=== PATIENT | female | born 1935 | race Caucasian/White ===

== ENCOUNTER → 2016-06-01 | Outpatient (CLI) | payer OTHER, MEDICARE ==
[~2016-06-01] MED LIST: LISI-787 PO; NRV/5 PO; OXYC-292 PO; [UNRECOGNIZED DRUG - CODE] IM
== END | disposition home or self-care (01) ==
LOC: C.LABSPEC 14:41
PROVIDERS: ATTEND Family Medicine
DX: N39.0 Urinary tract infection, site not specified (principal)

== ENCOUNTER 2017-09-29 06:32 | Inpatient (IN) | payer OTHER, MEDICARE ==
[2017-09-17 10:13] VITALS: BMI 27.0
[2017-09-23 10:45] VITALS: BMI 27.0
--- NOTE | 2017-09-23 11:03 | PAT Medication Instructions ---
Service Date Sep 23, 2017. Current Home Medication List Amlodipine Besylate (Amlodipine Besylate), 5 MG PO HS Lisinopril/Hctz (Zestoretic 20MG/12.5MG), 1 TAB PO QAM Naproxen (Aleve), 220 MG PO PRN Medication Instructions For Your Scheduled Surgery -Check with your surgeon for instructions for: Naproxen (Aleve), 220 MG PO PRN - Hold the following medications the morning of surgery: Lisinopril/Hctz (Zestoretic 20MG/12.5MG), 1 TAB PO QAM - Take the following medications as scheduled the night before surgery--THEN NOTHING TO EAT OR DRINK AFTER MIDNIGHT: Amlodipine Besylate (Amlodipine Besylate), 5 MG PO HS If you have any questions please call us at [phone] or [phone] or [phone]
[2017-09-23 11:45] LABS: BASO % 0.1 %; BASO ABS # 0.01 K/uL (0-0.2); EOS % 1.5 %; EOS ABS # 0.13 K/uL (0-0.5); HEMATOCRIT 41.1 % (37-47); HEMOGLOBIN 14.2 g/dL (12.0-16.0); IG# 0.03 K/uL (0.00-0.02); LYMPH % 20.3 %; LYMPH ABS # 1.76 K/uL (1.2-3.4); MEAN CELL VOLUME 92.4 fL (80-100); MEAN CORPUSCULAR HEMOGLOBIN 31.9 pg (25-34); MEAN CORPUSCULAR HGB CONC 34.5 g/dl (32-36); MEAN PLATELET VOLUME 10.5 fL (7.4-10.4); MONO % 8.2 %; MONO ABS # 0.71 K/uL (0.11-0.59); NEUT % 69.6 %; NEUT ABS # 6.02 K/uL (1.4-6.5); PLATELET COUNT 244 K/uL (130-400); RED CELL DISTRIBUTION WIDTH CV 13.3 % (11.5-14.5); RED CELL DISTRIBUTION WIDTH SD 45.1 fL (36.4-46.3); WHITE BLOOD COUNT 8.66 K/uL (4.8-10.8)
--- NOTE | 2017-09-23 11:48 | DIAGNOSTIC IMAGING REPORT ---
CHEST 2 VIEWS ROUTINE HISTORY: Preop. COMPARISON: None. FINDINGS: No pleural effusions. No pneumothorax. Mild diffuse interstitial thickening which is likely chronic. No focal lung consolidations to suggest pneumonia. The heart is top normal in size. No acute rib fractures. IMPRESSION: Mild interstitial thickening which is likely chronic. Borderline cardiomegaly. Electronically signed by: Mann Orourke M.D. 09/23/2017 11:46 AM Dictated Date/Time: 09/23/2017 11:45 AM
[2017-09-23 12:07] LABS: PTT PATIENT 28.4 SECONDS (21.0-31.0)
[2017-09-23 13:23] LABS: CALCIUM 9.1 mg/dl (8.5-10.1); CREATININE 0.73 mg/dl (0.60-1.20); POTASSIUM 3.8 mmol/L (3.5-5.1)
--- NOTE | 2017-09-25 11:34 | HISTORY & PHYSICAL EXAMINATION ---
DATE OF ADMISSION: 09/29/2017 CHIEF COMPLAINT: Bilateral knee pain and discomfort, right side greater than left. HISTORY OF PRESENT ILLNESS: This is an 82-year-old female who presents for surgical treatment of her right knee. She has got a long history of bilateral knee pain and discomfort and we have been treating her over the past several years with injections and conservative care. The left knee continues to do okay with conservative treatment. The right knee has not responded at all lately. The last shot did not help her much at all. This pain is global in her knee, a little bit more on the medial side. The more she walks, the more it hurts. She has pain with every step. She has nighttime discomfort. She would like to have her right knee fixed. PAST MEDICAL HISTORY: Past medical history of hypertension. PAST SURGICAL HISTORY: Previous surgeries include fallopian tube removal 50 years ago. ALLERGIES: PENICILLIN WHICH CAUSES HIVES. No respiratory problems. CURRENT MEDICINES: Include: 1. Lisinopril/hydrochlorothiazide 20/12.5 mg once a day. 2. Amlodipine 5 mg a day for blood pressure. SOCIAL HISTORY: An 82-year-old female who lives by herself. Her daughter does live up the row from her. Medical doctor is Dr. Watkins. FAMILY HISTORY: Noncontributory. REVIEW OF SYSTEMS: Negative for diabetes, neurologic problems, vascular problems, bleeding disorders. No chest pain or shortness of breath. No history of DVT or PE. PHYSICAL EXAMINATION: GENERAL: Physical examination reveals a pleasant elderly female. She looks to be in pretty good health. HEENT: Benign. NECK: Supple. No lymphadenopathy. LUNGS: Clear to auscultation. HEART: Regular rate and rhythm. ABDOMEN: Soft, nontender, nondistended. EXTREMITIES: Grossly neurovascularly intact except as follows: Examination of the right knee reveals patient walks with slight bit of a limp. She does walk with a bit of a stiff knee on the right. She does have bony hypertrophy medially. Small knee effusion. Range of motion is 5-10 degrees, show full extension to about 110 degrees of flexion. There is no instability. No pain with hip motion. She is neurologically intact. X-RAYS: X-ray of the right knee reviewed. Shows advanced medial compartment arthritis. She has complete loss of her joint space. She has got osteophytes off the medial femoral condyle and medial tibial plateau. ASSESSMENT: An 82-year-old female with advanced bilateral knee degenerative joint disease, right side more symptomatic than the left. She has failed conservative treatment and would like to have her right knee replaced. PLAN: We will take her to the operating room and do a right total knee replacement. The risks and benefits of this procedure were explained to the patient including but not limited to DVT, PE, , infection, neurological injury, vascular injury, bleeding problem, pain, limited range of motion, stiffness, failure to relieve symptoms, incomplete relief of symptoms, need for further surgery in the future, fracture, leg length inequality, nerve palsy, etc. The patient understands and desires to proceed. Informed consent was obtained. We did talk about holding her lisinopril in the morning of surgery. She is hoping to go home with some home health, but she does live by herself and that may be difficult. We will see how she does in the hospital, but she may need a rehab or penitentiary facility stay.
[~2017-09-29] VITALS: Ht 160 cm; Wt 70.3 kg
[2017-09-29] VITALS (9 sets, daily range): BP systolic 114–150; BP diastolic 68–77; PULSE 60–80; TEMP 36.4–36.8; O2SAT 93–99; Ht 160 cm; Wt 70.3 kg
[~2017-09-29 06:32] MED LIST changes: +ACETAMINOPHEN 500 MG TAB PO SCH; +BUPIVACAINE LIPOSOME 266 MG, BUPIVACAINE/EPINEPHRINE INJ 50 ML, SODIUM CHLORIDE 0.9% PF... INFIL SCH; +FAMOTIDINE 20 MG TAB PO SCH; +GABAPENTIN 300 MG CAP PO SCH; +LACTATED RINGER'S 1000ML 1,000 ML IV SCH; +LACTATED RINGER'S 1000ML 500 ML IV SCH; +LACTATED RINGER'S 1000ML IV SCH; +METOCLOPRAMIDE HCL 10 MG TAB PO SCH; +NAPR1TAB9 PO; -OXYC-292 PO; +TRANEXAMIC ACID INJ 1,000 MG x 1 Bag Intra-Op IV SCH; -[UNRECOGNIZED DRUG - CODE] IM
[2017-09-29] MEDS ORDERED: ROPIVACAINE 0.5% 5 MG/ML 30 ML VIAL ONE (06:49)
[2017-09-29] MEDS ORDERED: BUPIVACAINE 0.5 % 5 MG/1 ML PF 10ML VIAL ONE (06:49)
--- NOTE | 2017-09-29 06:52 | History & Physical Bridge Note ---
H&P Re-Evaluation Bridge Note: I have examined the patient, reviewed the History & Physical and in the interval since the performance of the History & Physical I have noted the following changes of clinical significance: No changes noted
[2017-09-29] MEDS ORDERED: CEFAZOLIN SOD 2000MG/15 ML IV PUSH ONE (07:34)
[2017-09-29] MEDS ORDERED: FENTANYL CITRATE INJ 50 MCG/1 ML 2 ML VIAL ONE (08:30)
[2017-09-29] MEDS ORDERED: MIDAZOLAM HCL 1 MG/ML 2ML VIAL ONE (08:31)
[2017-09-29] MEDS ORDERED: SODIUM CHLORIDE 0.9% PF 50 ML VIAL ONE (09:21)
[2017-09-29] MEDS ORDERED: BACITRACIN 50000 UNIT VIAL ONE (09:21)
[2017-09-29] MEDS ORDERED: EpINEphrine INJ 1MG/ML AMP 1 MG/ML AMP ONE (09:21)
[2017-09-29] MEDS ORDERED: BUPIVACAINE 0.25% 30 ML VIAL ONE (09:21)
[2017-09-29] MEDS ORDERED: BUPIVACAINE LIPOSOME 1/3% 266 MG/20 ML VIAL ONE (09:21)
[2017-09-29] MEDS ORDERED: EpHEDrine SULFATE INJ 50 MG/ML AMP IV PRN (09:45)
[2017-09-29] MEDS ORDERED: ATROPINE SULFATE 0.1 MG/ML 5ML SYR IV PRN (09:45)
[2017-09-29] MEDS ORDERED: PROPOFOL IV EMULSION 10 MG/ML 20 ML VIAL ONE (09:52)
[2017-09-29] MEDS ORDERED: LIDOCAINE HCL 2% 2 ML VIAL (20MG/ML) ONE (09:52)
[2017-09-29] MEDS ORDERED: PHENYLEPHRINE 100MCG/ML 5ML SYR ONE (10:35)
[2017-09-29] MEDS ORDERED: EpHEDrine SULFATE 50MG/5ML SYR ONE (11:05)
--- NOTE | 2017-09-29 11:57 | OPERATIVE REPORT ---
DATE OF OPERATION: 09/29/2017 SURGEON: Jermaine Jamil MD ELECTRICAL DESIGN ENGINEER: CHILANGO Calvillo PREOPERATIVE DIAGNOSIS: Right knee degenerative joint disease. POSTOPERATIVE DIAGNOSIS: Right knee degenerative joint disease. PROCEDURE PERFORMED: Right cemented posterior stabilized total knee arthroplasty. COMPLICATIONS: None. ESTIMATED BLOOD LOSS: 150 mL. FLUID REPLACEMENT: 1500 mL crystalloid fluid replacement. TOURNIQUET TIME: 55 minutes at 350 mmHg. ANESTHESIA: Spinal with adductor canal block. DRAINS: None. SPECIMENS: Right knee sent for pathology. OPERATIVE INDICATIONS: The patient is an 82-year-old very active, independent female who has had a long history of bilateral knee pain and discomfort. I have been treating her over the years with injections. This became less successful over the past year and she is having trouble getting around. X-rays show advanced bilateral knee DJD. She elected to proceed with the right total knee arthroplasty. OPERATIVE FINDINGS: Operative findings revealed advanced right knee DJD. Extensive grade 4 changes of medial femoral condyle and medial tibial plateau with a fixed varus deformity to her knee. She had a moderate sized joint effusion. She had some focal grade 4 changes in the patellofemoral as well as lateral compartment. OPERATIVE IMPLANTS: Operative implants consisted of: 1. Biomet Vanguard size 60 right posterior stabilized femoral component. 2. A Biomet size 63 tibial tray. 3. A 10 mm posterior stabilized polyethylene insert. 4. A 31 x 8 all poly patella. OPERATIVE PROCEDURE: The patient was taken to the operating room, identified and placed on the operating table in supine position. All contact areas were appropriately padded. IV antibiotics were provided by anesthesia team. A spinal anesthetic and adductor canal block had been provided in the holding area. Saunders catheter was placed in sterile fashion. A right thigh tourniquet was then placed and the right lower extremity was then prepped and draped in usual sterile fashion. The right leg was elevated and exsanguinated with Esmarch and tourniquet was placed at 300 mmHg. An anterior approach to the right knee was then performed through a longitudinal incision centered over the patella. Sharp dissection was carried through the subcutaneous tissue down to the level of the extensor mechanism. A medial parapatellar arthrotomy incision was made. Some subperiosteal dissection was carried out medially. The fat pad was resected from beneath the patellar tendon. Lateral patellofemoral ligament was released. Patella was everted and knee was flexed. The osteophytes were taken off the distal femur. The ACL and PCL were then released from the distal femur and the tibia subluxated anteriorly. The external tibial alignment jig was then placed in the anterior face of the tibia and adjusted 14 mm medially. Proximal tibial cut was made to remove about 2 mm of bone from the most deficient aspect of the medial tibial plateau. She was oozing quite a bit, so we did increase the tourniquet pressure to 350 mmHg. Some osteophytes were taken off medial and posteromedially. The tibia sized to a size 63. Attention was then drawn to the femur. The distal femur was entered with a sharp drill bit. Intramedullary canal was suctioned. A right 5-degree valgus cutting guide was placed. Distal femoral cutting block was pinned in place. Distal femoral cut was made to take an additional 3 mm of bone off the distal femur. The femur was then sized to a size 60. We did downsize this slightly. The AP cutting block was pinned parallel to the epicondylar axis, which was 3 degrees of external rotation. The anterior cut, anterior chamfer, posterior cut, posterior chamfer cuts were made. Box cutting guide was placed and adjusted slight lateral and box cut was made. The knee was flexed. The remnants of the medial and lateral menisci were excised. The osteophytes were taken off the posterior aspect of the femur. A trial femoral component was placed. Tibial tray was pinned in maximum external rotation and drill and stem punch were used to create defect in proximal tibia for the tibial tray. The knee was then trialed and the 10 mm insert fit most appropriately. Attention was then drawn to the patella. The patella was cleaned of all soft tissues. Patella thickness measured 20 mm, cut down to 13. It was sized to a size 31 patella. Lug holes were drilled for a 31 patella. Lateral osteophyte was removed. Patella button was placed. Knee was taken through range of motion and the patella tracked nicely with no thumbs test. Attention was then drawn toward placement of permanent components. All trial components were removed. A bone plug was placed in the distal femur to limit blood loss. A double batch of Palacos G cement was mixed. A Biomet size 60 right posterior stabilized femoral component, size 63 tibial tray, 10 mm posterior stabilized polyethylene insert, and a 31 x 8 all poly patella were then cemented in place. Knee was brought out into full extension until cement hardened. A final cement check was then performed. The pericapsular tissues were injected with a total of 100 mL of combination of 20 mL of Exparel, 30 mL of normal saline, 50 mL of 0.25% Marcaine with epinephrine. The patient did receive 1 gram of tranexamic acid. The tourniquet was then let down for a final tourniquet time of 55 minutes. Interestingly, the bleeding decreased significantly once the tourniquet was down. Wound was irrigated. The extensor mechanism was then closed with a combination of #1 PDS suture and #1 Vicryl suture in [id number] fashion. Extensor mechanism was checked and found to be intact. The subcutaneous tissue was then closed with #2 Dexon suture in a buried interrupted fashion. Skin was closed with skin jakub. Leg was then cleaned and dried and a sterile dressing of Xeroform, 4 x 4's, sterile cast padding, and Benny bandage were applied. The patient then transferred to the recovery room in stable condition. The patient tolerated the procedure well with no complications. All needle and sponge counts were correct at the end of the operation. I attest to the content of the Intraoperative Record and any orders documented therein. Any exception s are noted below.
--- NOTE | 2017-09-29 12:07 | DIAGNOSTIC IMAGING REPORT ---
R KNEE 2 VIEWS ROUTINE CLINICAL HISTORY: Degenerative arthritis. Postoperative examination COMPARISON: Image radiographic study dated 09/23/2017 DISCUSSION: There are postsurgical changes of a total right knee arthroplasty. The spike of the tibial component is positioned slightly eccentrically towards the lateral cortex of the proximal tibial metaphysis. There are no acute fractures. There is no dislocation. There is air in the soft tissues consistent with recent surgery. IMPRESSION: Postsurgical changes of a total right knee arthroplasty Electronically signed by: Jan Carson M.D. 09/29/2017 12:05 PM Dictated Date/Time: 09/29/2017 12:03 PM
[2017-09-29] MEDS ORDERED: ZOLPIDEM TARTRATE 5 MG TAB PO PRN (14:00)
[2017-09-29] MEDS ORDERED: SILVER SULFADIAZINE 1% CR 50 GM JAR EXT PRN (14:00)
[2017-09-29] MEDS ORDERED: ALUMINUM/MAGNESIUM/SIMETH (MAALOX MAX) 30 ML UDC PO PRN (14:00)
[2017-09-29] MEDS ORDERED: MAGNESIUM HYDROXIDE SUSP 30 ML UDC PO PRN (14:00)
[2017-09-29] MEDS ORDERED: ONDANSETRON INJ 2 MG/ML 2 ML VIAL IV PRN (14:00)
[2017-09-29] MEDS ORDERED: METOCLOPRAMIDE HCL INJ 5 MG/ML 2 ML VIAL IV PRN (14:00)
[2017-09-29] MEDS ORDERED: TRAMADOL HCL 50 MG TAB PO PRN (14:00)
[2017-09-29] MEDS ORDERED: BISACODYL 10 MG SUPP PR PRN (14:00)
[2017-09-29] MEDS ORDERED: HYDROmorphone INJ 0.5 MG/0.5 ML SYR IV PRN (14:15)
[2017-09-29] MEDS: D5W AND 1/2NSS + 20MEQ KCL 1,000 ML IV SCH ×2 (14:28→23:55)
[2017-09-29] MEDS: ACETAMINOPHEN 500 MG TAB PO SCH ×2 (14:29→21:55)
[2017-09-29] MEDS: KETOROLAC TROMETHAMINE 15 MG/ML VIAL IV. SCH ×2 (16:56→21:55)
[2017-09-29] MEDS ORDERED: TRANEXAMIC ACID INJ 1,000 MG in SODIUM CHLORIDE 0.9% 100ML 100 ML IV SCH (17:00)
[2017-09-29] MEDS: FERROUS GLUCONATE 324 MG TAB PO SCH (18:01)
[2017-09-29] MEDS: CEFAZOLIN IV 1,000 MG in SYRINGE 0 ML IV SCH (18:04)
[2017-09-29] MEDS: SENNA 8.6 MG TAB PO SCH (20:41)
[2017-09-29] MEDS: ASPIRIN 81 MG ECTAB PO SCH (20:41)
[2017-09-29] MEDS: DOCUSATE SODIUM 100 MG CAP PO SCH (20:41)
[2017-09-30] VITALS (8 sets, daily range): BP systolic 120–138; BP diastolic 68–77; PULSE 60–78; TEMP 36.6–37.2; O2SAT 95–100
[2017-09-30] MEDS: CEFAZOLIN IV 1,000 MG in SYRINGE 0 ML IV SCH (01:57)
[2017-09-30] MEDS: KETOROLAC TROMETHAMINE 15 MG/ML VIAL IV. SCH ×4 (04:30→20:50)
[2017-09-30 05:37] LABS: HEMATOCRIT 29.9 % (37-47); HEMOGLOBIN 10.1 g/dL (12.0-16.0); MEAN CELL VOLUME 93.4 fL (80-100); MEAN CORPUSCULAR HEMOGLOBIN 31.6 pg (25-34); MEAN CORPUSCULAR HGB CONC 33.8 g/dl (32-36); MEAN PLATELET VOLUME 10.8 fL (7.4-10.4); PLATELET COUNT 187 K/uL (130-400); RED CELL DISTRIBUTION WIDTH CV 13.4 % (11.5-14.5); RED CELL DISTRIBUTION WIDTH SD 46.1 fL (36.4-46.3); WHITE BLOOD COUNT 9.96 K/uL (4.8-10.8)
[2017-09-30] MEDS: ACETAMINOPHEN 500 MG TAB PO SCH ×3 (06:04→20:50)
[2017-09-30 06:12] LABS: CALCIUM 7.9 mg/dl (8.5-10.1); CREATININE 0.75 mg/dl (0.60-1.20)
[2017-09-30] MEDS: GABAPENTIN 300 MG CAP PO SCH (08:59)
[2017-09-30] MEDS: FAMOTIDINE 20 MG TAB PO SCH (08:59)
[2017-09-30] MEDS: MULTIVITAMIN TAB PO SCH (08:59)
[2017-09-30] MEDS: FERROUS GLUCONATE 324 MG TAB PO SCH ×3 (08:59→17:47)
[2017-09-30] MEDS: DOCUSATE SODIUM 100 MG CAP PO SCH ×2 (08:59→20:49)
[2017-09-30] MEDS: LISINOPRIL/HCTZ 20/12.5MG TAB PO SCH (09:00)
[2017-09-30] MEDS: PANTOprazole SOD 40 MG TAB PO SCH (09:00)
[2017-09-30] MEDS: ASPIRIN 81 MG ECTAB PO SCH ×2 (09:00→20:49)
[2017-09-30] MEDS ORDERED: AMLODIPINE BESYLATE 5 MG TAB PO SCH ×2 (09:00→21:00)
--- NOTE | 2017-09-30 09:30 | Anesthesiology Progress Note ---
Anesthesia Post Op Note Date & Time Sep 30, 2017 at 09:29 Vital Signs Pain Intensity: 0.0 Vital Signs Past 12 Hours Date Time Temp Pulse Resp B/P (MAP) Pulse Ox O2 Delivery O2 Flow Rate FiO2 09/30/17 07:39 37.0 70 17 120/71 (87) 96 Room Air 09/30/17 07:25 Room Air 09/30/17 03:10 37.2 66 16 137/68 (91) 95 Room Air 09/29/17 23:55 Room Air 09/29/17 23:20 36.4 63 14 114/68 (83) 98 Room Air Notes Mental Status: alert / awake / arousable, participated in evaluation Pt Amnestic to Procedure: Yes Nausea / Vomiting: adequately controlled Pain: adequately controlled Airway Patency, RR, SpO2: stable & adequate BP & HR: stable & adequate Hydration State: stable & adequate Anesthetic Complications: no major complications apparent
[2017-09-30] MEDS: D5W AND 1/2NSS + 20MEQ KCL 1,000 ML IV SCH (09:58)
[2017-09-30] MEDS ORDERED: NURSING VERBAL MED ORDER ONE (10:00)
--- NOTE | 2017-09-30 10:44 | PROGRESS NOTE ---
DATE: 09/30/2017 SUBJECTIVE: An 82-year-old female postop day 1 from a right knee replacement. She is doing well. Really not much pain. No chest pain or shortness of breath. Not feeling dizzy or lightheaded. OBJECTIVE: VITAL SIGNS: Temperature 37.0. Vital signs stable. GENERAL: Reveals a healthy pleasant elderly female. She is sitting in her bedside chair and looks quite comfortable. LUNGS: Clear to auscultation. HEART: Regular rate and rhythm. ABDOMEN: Soft, nontender, nondistended. EXTREMITIES: Grossly neurovascularly intact except as follows. Examination of the right leg reveals the dressing to be clean, dry, and intact. Her leg is well aligned. She can dorsiflex and plantarflex her foot appropriately. She is neurologically intact. LABORATORY DATA: Hemoglobin 10.1, hematocrit 29.9. Electrolytes are stable. ASSESSMENT: An 82-year-old female postop day 1 from a right knee replacement, doing pretty well. Pain is controlled. She is neurologically intact. PLAN: 1. DVT prophylaxis including thigh-high TEDs, SCDs, and aspirin twice a day. 2. PT/OT. Weight bear as tolerated. Right total knee protocol. 3. Pain control, doing well with current pain regimen. 4. Disposition: She is hoping to be discharged to home with some home health once adequately recovered. We will see how she does in therapy today.
[2017-09-30] MEDS: SENNA 8.6 MG TAB PO SCH (20:49)
[2017-09-30] MEDS ORDERED: ASPI-461 PO (21:27)
[2017-09-30] MEDS ORDERED: ULT50X PO (21:27)
[2017-09-30] MEDS ORDERED: FRRG PO (21:27)
[2017-09-30] MEDS ORDERED: ACET-24 PO (21:27)
--- NOTE | 2017-09-30 21:30 | Discharge Instructions ---
Discharge Instructions Date of Service Sep 30, 2017. Admission Reason for Admission: Right Knee Degenerative Joint Disease, Knee Pain Discharge Discharge Diagnosis / Problem: Right Knee Replacement Discharge Goals Goal(s): Decrease discomfort, Improve function, Increase independence, Improve disease control, Therapeutic intervention Activity Recommendations Activity Limitations: per Instructions/Follow-up section Weightbearing Status: Right weightbearing . Instructions / Follow-Up Instructions / Follow-Up ACTIVITY RECOMMENDATIONS: Physical Therapy: * You will go to physical therapy three times each week for four to six weeks after your surgery in order to regain your knee range of motion and to retrain your knee to work properly. * It is just as important to make sure you are getting your knee perfectly straight as it is to regain your knee bend. * Taking a pain pill an hour before therapy can help you have a more productive and comfortable therapy session. Home Exercise: * You were shown a series of exercises (heel props, heel slides, etc.) in the hospital. Do these exercises three to four times each day including the exercises you were shown in physical therapy. Walking: * Get up and walk several times each day. For the first four weeks, try not to stand or walk for more than one hour at a time. If you do stand or walk for more than one hour, you will not hurt anything, but your knee and leg will likely swell. * As you feel comfortable, you may change from the walker or crutches to a cane and then to independent walking. MEDICATIONS: New Medicine: * You will likely be taking one or more of these medications: 1. Tramadol - A quick and shorter-acting pain medication. Take one to two tablets every four to six hours to lessen your pain. 2. Iron Sulfate - Take two times each day for the month after surgery to help you replace the blood lost during surgery. 3. Aspirin - Thins your blood to lessen the chance of forming a blood clot. * The most common side effects of pain medicine and iron are nausea and constipation. If nausea or constipation is too much of a problem or if you have any questions about your new medicines or doses, call [facility] at . We will try to help you manage these issues. VERY IMPORTANT TO READ AND REVIEW" Pain: * The immediate post-operative period after knee replacement surgery is often quite painful. * You are given a prescription for pain medicine. You should take it, as directed, when you need it, especially before physical therapy and before going to bed. Pain that interferes with sleep is very common and can last several months. * You will likely need pain medicine for the first four to six weeks. It will not stop all of the pain. The pain will lessen and as you feel better, you may change to milder pain medicine such as Tylenol. * The most common side effects of pain medicine are nausea and constipation, so don't take more than you need. SPECIAL CARE INSTRUCTIONS: TEDs/Elastic Stockings: * The white elastic stockings help limit swelling and prevent blood clots from forming in your legs. The more you wear them, the more they work. * Wear them for six weeks after knee replacement surgery and four weeks after partial knee replacement. Prevention of Infection: * Take antibiotics one hour before any dental cleaning, dental work, urological procedure, gastrointestinal procedure or any invasive surgery in order to prevent your new joint from getting infected. * You may get the antibiotics from the doctor performing the procedure or you may call our office at before and we will call in a prescription to the pharmacy of your choice. Things to Watch For: * Drainage from the incision site that occurs more than one week after your surgery. * Severely increased knee/leg pain or swelling. * Increased redness at the incision site. * Fever above 102 degrees Fahrenheit. * Unusual chest pain or shortness of breath. * Unusual pain or burning with urination. Call [facility] at with any of the above problems or if you have any questions about your medicines or recovery. FOLLOW UP VISIT: Make an appointment to see your doctor for approximately two weeks after surgery for a progress check and staple removal by calling the office at . Current Hospital Diet Patient's current hospital diet: Regular Diet Discharge Diet Recommended Diet: Regular Diet Pending Studies Studies pending at discharge: no Medical Emergencies . Who to Call and When: Medical Emergencies: If at any time you feel your situation is an emergency, please call [phone] immediately. . Non-Emergent Contact Non-Emergency issues call your: Surgeon . "Provider Documentation" section prepared by Jermaine Jamil. .
[2017-10-01] MEDS: KETOROLAC TROMETHAMINE 15 MG/ML VIAL IV. SCH ×2 (03:57→09:49)
[2017-10-01] MEDS: ACETAMINOPHEN 500 MG TAB PO SCH ×2 (05:20→13:46)
[2017-10-01 05:51] LABS: HEMOGLOBIN 9.1 g/dL (12.0-16.0); MEAN CELL VOLUME 93.1 fL (80-100); MEAN CORPUSCULAR HEMOGLOBIN 31.4 pg (25-34); MEAN CORPUSCULAR HGB CONC 33.7 g/dl (32-36); MEAN PLATELET VOLUME 10.7 fL (7.4-10.4); PLATELET COUNT 179 K/uL (130-400); RED CELL DISTRIBUTION WIDTH CV 13.3 % (11.5-14.5); RED CELL DISTRIBUTION WIDTH SD 45.5 fL (36.4-46.3); WHITE BLOOD COUNT 10.21 K/uL (4.8-10.8)
[2017-10-01 06:20] LABS: CALCIUM 7.8 mg/dl (8.5-10.1); CREATININE 0.86 mg/dl (0.60-1.20); POTASSIUM 3.8 mmol/L (3.5-5.1)
[2017-10-01 06:40] VITALS: BP 111/68; PULSE 65; TEMP 37; O2SAT 97
--- NOTE | 2017-10-01 07:54 | PROGRESS NOTE ---
DATE: 10/01/2017 SUBJECTIVE: This is an 82-year-old female postop day 2 from a right knee replacement. She is doing well. Pain is controlled. No chest pain or shortness of breath. Not feeling dizzy or lightheaded. OBJECTIVE: VITAL SIGNS: Temperature 37.0. Vital signs stable. GENERAL: Physical examination reveals a pleasant elderly female. She is sitting up in her bedside chair and looks comfortable. EXTREMITIES: Examination of the right leg reveals the dressing to be clean, dry and intact. Calf is soft and supple. She can dorsiflex and plantarflex her foot appropriately. She is neurologically intact. LABORATORY DATA: Hemoglobin 9.1. Hematocrit 27.0. Electrolytes are stable. ASSESSMENT: This is an 82-year-old female postop day 2 from right knee replacement, doing well. Pain is controlled. She is slightly anemic, but without symptoms. PLAN: 1. DVT prophylaxis including thigh-high TEDs, SCDs, and aspirin twice a day. 2. PT/OT. Weight bear as tolerated. Right total knee protocol. 3. Pain control, doing pretty well with current pain regimen. 4. Disposition: She is planning to be discharged to home with some home health later today.
[2017-10-01 08:28] VITALS: BP 111/68; PULSE 65; TEMP 37; O2SAT 97
[2017-10-01] MEDS: LISINOPRIL/HCTZ 20/12.5MG TAB PO SCH (09:13)
[2017-10-01] MEDS: ASPIRIN 81 MG ECTAB PO SCH (09:13)
[2017-10-01] MEDS: FAMOTIDINE 20 MG TAB PO SCH (09:15)
[2017-10-01] MEDS: FERROUS GLUCONATE 324 MG TAB PO SCH ×2 (09:49→12:40)
[2017-10-01] MEDS: DOCUSATE SODIUM 100 MG CAP PO SCH (09:49)
[2017-10-01] MEDS: GABAPENTIN 300 MG CAP PO SCH (09:49)
[2017-10-01] MEDS: MULTIVITAMIN TAB PO SCH (09:52)
[2017-10-01] MEDS: PANTOprazole SOD 40 MG TAB PO SCH (09:53)
[2017-10-01 15:32] VITALS: BP 136/69; PULSE 62; TEMP 36.7; O2SAT 97
--- NOTE | 2017-10-12 15:45 | DISCHARGE SUMMARY ---
ADMITTING PHYSICIAN AND SURGEON: Dr. Jamil. ADMITTING DIAGNOSIS: Right knee degenerative joint disease. SURGERY PERFORMED: Right total knee arthroplasty. SECONDARY DIAGNOSIS: Hypertension. CONSULTS: None obtained. HISTORY AND PHYSICAL EXAMINATION: Well documented in the patient's chart. HOSPITAL COURSE: The patient was admitted on 09/29/2017, underwent total knee arthroplasty, tolerated the procedure well and there were no complications. She was transferred to the PACU postoperatively and later to the orthopedic floor for further care. She was given Ancef for antibiotic prophylaxis, BRITANY stockings, SCDs and aspirin for DVT prophylaxis. Hemoglobin, hematocrit and vital signs were monitored during hospital stay and remained stable. She developed some postoperative anemia, did not require any blood transfusions. There were no complications. By postoperative day 2, she was tolerating a regular diet, pain was controlled with oral pain medicine. She was participating in physical therapy. Postop day 2, she was discharged home, set up with home health services. She was given printed discharge instructions including new prescriptions for extra-strength Tylenol, aspirin, iron supplement and tramadol. Continue her home medicines. Continue physical therapy, weightbearing as tolerated, BRITANY stockings, follow up in approximately 2 weeks postoperatively or sooner if any problems or concerns.
== END 2017-10-01 17:30 | disposition home health service (06) | DRG 470 ==
LOC: C.ACU 06:32 → C.3E 07:10 → ENRESERV 12:19
PROVIDERS: ADMIT Orthopaedic Surgery Sports Medicine; ATTEND Orthopaedic Surgery Sports Medicine
PROC: 0SRC0J9 Replacement of Right Knee Joint with Synthetic Substitute, Cemented, Open Approach (ICD-10-PCS; principal; 2017-09-29 09:15)
DX: M17.11 Unilateral primary osteoarthritis, right knee (principal); I10 Essential (primary) hypertension; Z88.0 Allergy status to penicillin

== ENCOUNTER 2021-11-22 10:39 | Observation (INO) ==
--- NOTE | 2021-11-22 11:05 | Emergency Department Note ---
Impression & Plan Syncope, Elevated troponin ED Provider Note NAME: KORI WILD AGE: 86 SEX: F : 1935 ARRIVES VIA: Walk-In INFORMANT: Patient, ED PROVIDER(S): Glenn Byers MD Chief Complaint: Syncope HPI: Patient presents from [facility] after syncopal event. The patient's daughters at bedside states that she was not with her at the time but was reported that the patient had a brief syncopal episode. Patient states that she had gotten all her things at the store then just felt off and sat down and then reportedly a bystander had helped lay her to the ground. No reports of tongue biting incontinence or shaking. The patient denies any headache neck pain chest pain shortness of breath nausea or vomiting. Patient has had 2 episodes of loose stools since. Patient did not take any blood the medications. The patient does take her medications as prescribed. Patient believes that her sleep and appetite been okay that she is drinking normally. Patient denies any feelings of palpitation. The patient did have some mild dizziness prior to this event. The patient is not a diabetic. The patient ate this morning. Patient does feel better compared to before and like to go home. Patient denies any strokelike symptoms including numbness tingling focal weakness or slurred speech or facial droop. ROS: See HPI for pertinent positives and negatives. A total of 10 systems were reviewed and otherwise negative. Past medical history: See below Surgical history: See below Social history: See below Physical Exam: GENERAL: NAD, wearing a mask, non-toxic. Hard of hearing wearing hearing aids. EYE EXAM: Normal conjunctiva. PERRL, no anisocoria and EOM's grossly intact w/o pain. NECK: Supple, no nuchal rigidity, no adenopathy, non-tender. No signs of meningismus. FROM of the neck with good chin to chest and neck extension. No stridor. LUNGS: Clear to auscultation. Normal chest wall mechanics. HEART: NSR, no MRG. ABDOMEN: Abdomen soft, non-tender, normo-active bowel sounds, no masses, no rebound or guarding. BACK: No CVA TTP. SKIN: No rashes and no bruising. UPPER EXTREMITIES: Upper extremities are grossly normal. LOWER EXTREMITIES: Grossly normal, no edema. NEURO EXAM: A&O x3, cranial nerves II-XII grossly intact, normal speech, moves all 4 extremities. Good [id number], no sensory deficits, no drift. Differential diagnoses: Vasovagal event, dehydration, infection, hypoglycemia, electrolyte abnormalities, cardiac sources, intracerebral event, pulmonary embolism, seizure, toxicologic, neurologic, as well as other pathologies. Course: Patient was seen and evaluated the bedside. Full history physical exam was performed. EKG interpreted by me Normal sinus rhythm, rate of 75, normal HI and QRS, normal axis, slight depressions in the lateral leads. This is a new change from comparison September 23, 2017. Imaging Studies: See Below Cardiac monitoring: An order was placed for continuous cardiac monitoring. The monitor shows a rate of 88 with sinus rhythm. MDM: Patient presented due to concern for syncope. Blood work was obtained the patient was ordered IV fluids and did have an EKG completed along with a chest x-ray. Patient's blood work showed normal white count H&H and platelet count. The patient's kidney function with mild prerenal azotemia and hyponatremia 135. The patient did have a positive troponin at 17.3. Nonspecific slight ST depressions in the lateral leads. COVID-negative. The patient did have a chest x-ray which showed diffuse interstitial thickening. Given the patient's syncope positive troponin and subtle EKG changes do believe the patient would benefit from telemetry and admission. I did speak the on-call hospitalist the patient was admitted by Dr. Mares. The patient has no chest pains or shortness of breath at this time. Past Med/Surg History Medical History Asthma HTN (hypertension) Lumbar compression fracture Lumbar spinal stenosis Neurogenic claudication Piriformis syndrome Scoliosis Surgical History History of appendectomy History of knee replacement, total right knee Social History Smoking Status: Never smoker Hx Alcohol Use: No Hx Substance Use: No Preferred Language: Northern Irish Communication Ability: Effective Visual Impairment: Limited Hearing Ability: Hard of Hearing Cable Braider Required: No Beliefs That Will Affect Care: None marital status: / Current Living Situation: Alone current occupational status: retired Feels Safe at Home: Yes Safety Concerns: Feels Safe At This Time Allergies Allergies Allergy/AdvReac Type Severity Reaction Status Date / Time amoxicillin Allergy Unknown HIVES Verified 04/12/20 14:58 Home Meds Home Medications Medication Instructions Recorded Confirmed amlodipine 5 mg tablet 5 mg PO HS 05/15/19 04/01/20 lisinopril 20 1 tab PO DAILY 05/15/19 04/01/20 mg-hydrochlorothiazide 12.5 mg tablet Results & Data (ED) Vital Signs Vital Signs - 24 hr 11/22/21 10:52 11/22/21 11:33 11/22/21 11:38 Temperature 36.9 C Temperature Source Temporal Artery Scan Pulse Rate 92 H 73 Pulse Rate [Finger] 73 Pulse Rhythm Regular Pulse Rhythm [Finger] Regular Pulse Strength [Finger] Normal Respiratory Rate 16 17 17 Respiratory Effort / Characteristics Non-Labored Spontaneous Respiratory Depth Normal Respiratory Pattern Regular Blood Pressure 137/81 Blood Pressure [Right Arm] 120/81 Blood Pressure Mean 99 Blood Pressure Mean [Right Arm] 94 Blood Pressure Position Sitting Blood Pressure Position [Right Arm] Sitting Pulse Oximetry 96 100 93 Oxygen Delivery Method Room Air Room Air Room Air Sepsis Recent Fever Within 48 Hours No Sepsis New/Unexplained Change in Mental Status No Sepsis Action Taken by Nursing No Action Required 11/22/21 13:01 Temperature Temperature Source Pulse Rate Pulse Rate [Finger] 79 Pulse Rhythm Pulse Rhythm [Finger] Pulse Strength [Finger] Respiratory Rate 17 Respiratory Effort / Characteristics Non-Labored Spontaneous Respiratory Depth Normal Respiratory Pattern Regular Blood Pressure Blood Pressure [Right Arm] 122/81 Blood Pressure Mean Blood Pressure Mean [Right Arm] 94 Blood Pressure Position Blood Pressure Position [Right Arm] Sitting Pulse Oximetry 97 Oxygen Delivery Method Room Air Sepsis Recent Fever Within 48 Hours Sepsis New/Unexplained Change in Mental Status Sepsis Action Taken by Detention Medications Current Medication List: was personally reviewed by me Laboratory Data Attestation: I reviewed the patient's lab results. Result diagrams: 11/22/21 11:30 11/22/21 11:30 Lab Results 11/22/21 11/22/21 11/22/21 Range/Units 11:30 11:30 11:30 WBC 9.70 (4.8-10.8) K/ul RBC 4.32 (3.93-5.22) M/uL Hgb 13.9 (12.0-16.0) g/dl Hct 40.9 (34.1-44.9) % MCV 94.7 (80.0-100.0) fL MCH 32.2 (25.0-34.0) pg MCHC 34.0 (32.0-36.0) g/dL RDW Std Deviation 45.0 (36.4-46.3) fL RDW Coeff of Refugio 12.9 (11.5-14.5) % Plt Count 247 (130-400) K/uL MPV 10.1 (9.4-12.3) fL Immature Gran % (Auto) 0.5 % Neut % (Auto) 79.5 % Lymph % (Auto) 13.1 % Becker % (Auto) 4.7 % Eos % (Auto) 1.8 % Baso % (Auto) 0.4 % Neut # (Auto) 7.71 H (1.4-6.5) K/uL Lymph # (Auto) 1.27 (1.2-3.4) K/uL Becker # (Auto) 0.46 (0.24-0.82) K/uL Eos # (Auto) 0.17 (0-0.50) K/uL Baso # (Auto) 0.04 (0-0.2) K/uL Immature Gran # (Auto) 0.05 H (0.00-0.02) K/uL Sodium 135 L (136-145) mmol/L Potassium 3.9 (3.5-5.1) mmol/L Chloride 101 (98-107) mmol/L Carbon Dioxide 25 (21-32) mmol/L Anion Gap 9 (3-11) BUN 21 (6-23) mg/dl Creatinine 0.98 (0.6-1.2) mg/dl Est Cr Clr Drug Dosing 36.5 ml/min Est GFR ( Amer) 59.7 ml/min Est GFR (Non-Af Amer) 51.5 ml/min BUN/Creatinine Ratio 21.4 H (10-20) Glucose 118 H (70-99(Fasting)) mg/dl Calcium 9.2 (8.5-10.1) mg/dl Magnesium 2.0 (1.7-2.4) mg/dl Total Bilirubin 0.7 (0.2-1.0) mg/dl AST 16 (13-39) U/L ALT 12 (7-52) U/L Alkaline Phosphatase 61 (34-104) U/L Troponin I High Sens 17.3 H (0-14) pg/ml Total Protein 6.8 (6.0-8.3) gm/dl Albumin 4.1 (3.4-5.0) gm/dl Globulin 2.7 (2.5-4.0) gm/dl Albumin/Globulin Ratio 1.5 (0.9-2) TSH 1.168 (0.300-4.500) uIu/ml SARS-CoV-2, RNA, NAAT (NEGATIVE) 11/22/21 Range/Units 12:58 WBC (4.8-10.8) K/ul RBC (3.93-5.22) M/uL Hgb (12.0-16.0) g/dl Hct (34.1-44.9) % MCV (80.0-100.0) fL MCH (25.0-34.0) pg MCHC (32.0-36.0) g/dL RDW Std Deviation (36.4-46.3) fL RDW Coeff of Refugio (11.5-14.5) % Plt Count (130-400) K/uL MPV (9.4-12.3) fL Immature Gran % (Auto) % Neut % (Auto) % Lymph % (Auto) % Becker % (Auto) % Eos % (Auto) % Baso % (Auto) % Neut # (Auto) (1.4-6.5) K/uL Lymph # (Auto) (1.2-3.4) K/uL Becker # (Auto) (0.24-0.82) K/uL Eos # (Auto) (0-0.50) K/uL Baso # (Auto) (0-0.2) K/uL Immature Gran # (Auto) (0.00-0.02) K/uL Sodium (136-145) mmol/L Potassium (3.5-5.1) mmol/L Chloride (98-107) mmol/L Carbon Dioxide (21-32) mmol/L Anion Gap (3-11) BUN (6-23) mg/dl Creatinine (0.6-1.2) mg/dl Est Cr Clr Drug Dosing ml/min Est GFR ( Amer) ml/min Est GFR (Non-Af Amer) ml/min BUN/Creatinine Ratio (10-20) Glucose (70-99(Fasting)) mg/dl Calcium (8.5-10.1) mg/dl Magnesium (1.7-2.4) mg/dl Total Bilirubin (0.2-1.0) mg/dl AST (13-39) U/L ALT (7-52) U/L Alkaline Phosphatase (34-104) U/L Troponin I High Sens (0-14) pg/ml Total Protein (6.0-8.3) gm/dl Albumin (3.4-5.0) gm/dl Globulin (2.5-4.0) gm/dl Albumin/Globulin Ratio (0.9-2) TSH (0.300-4.500) uIu/ml SARS-CoV-2, RNA, NAAT NEGATIVE (NEGATIVE) Administered Medications Discontinued Medications Sodium Chloride (Nss) 500 mls @ 999 mls/hr IV .Q31M MARGARET Stop: 11/22/21 11:45 Last Infusion: 11/22/21 12:16 Dose: 0 mls/hr Documented By: Admin: 11/22/21 11:39 Dose: 999 mls/hr Documented By: ON LICENSE OF [facility] Imaging Data Radiologist's Impression: Chest X-Ray 11/22/21 11:19 XR chest 1V portable HISTORY: syncope COMPARISON: Chest 09/23/2017. FINDINGS: No pneumothorax. The cardiac silhouette is mildly enlarged. There is diffuse interstitial thickening most pronounced within the lower lung zones. There are hazy bibasilar densities. No evidence for pulmonary edema. No acute rib fractures. No pleural effusions. IMPRESSION: 1. Diffuse interstitial thickening most pronounced within the lower lung zones. This has progressed in the interval and could represent an interstitial pneumonitis on the background of chronic interstitial change. 2. Mild cardiomegaly. ACT 112: Negative or not required by law. Electronically signed by: Mann Orourke M.D. 11/22/2021 11:48 AM Discharge Plan Visit Data Chief Complaint: Syncope Stated Complaint: SYNCOPE, PASSED OUT ED Provider: Glenn Byers Discharge Problem: Syncope, Elevated troponin Patient Disposition: Admitted As Inpatient Discharge Instructions Interventions: ED Discharge Assessment Last Done: 11/22/21 16:39
[2021-11-22] MEDS ORDERED: SODIUM CHLORIDE 0.9% 500 ML IV SCH (11:15)
[2021-11-22 11:40] LABS: Basophils # (auto) 0.04 K/uL (0-0.2); Basophils % (auto) 0.4 %; Eosinophils # (auto) 0.17 K/uL (0-0.50); Eosinophils % (auto) 1.8 %; Hematocrit (blood only) 40.9 % (34.1-44.9); Hemoglobin 13.9 g/dl (12.0-16.0); Immature Granulocytes # (auto) 0.05 K/uL (0.00-0.02); Immature Granulocytes % (auto) 0.5 %; Lymphocytes # (auto) 1.27 K/uL (1.2-3.4); Lymphocytes % (auto) 13.1 %; Mean Corpuscular Hemoglobin 32.2 pg (25.0-34.0); Mean Corpuscular Volume 94.7 fL (80.0-100.0); Mean Platelet Volume 10.1 fL (9.4-12.3); Monocytes # (auto) 0.46 K/uL (0.24-0.82); Monocytes % (auto) 4.7 %; Neutrophils # (auto) 7.71 K/uL (1.4-6.5); Neutrophils % (auto) 79.5 %; Platelet Count 247 K/uL (130-400); RDW Coefficient of Variation 12.9 % (11.5-14.5); Red Blood Count 4.32 M/uL (3.93-5.22)
--- NOTE | 2021-11-22 11:51 | XRay Report ---
XR chest 1V portable HISTORY: syncope COMPARISON: Chest 09/23/2017. FINDINGS: No pneumothorax. The cardiac silhouette is mildly enlarged. There is diffuse interstitial t hickening most pronounced within the lower lung zones. There are hazy bibasilar densities. No evidenc e for pulmonary edema. No acute rib fractures. No pleural effusions. IMPRESSION: 1. Diffuse interstitial thickening most pronounced within the lower lung zones. This has progressed i n the interval and could represent an interstitial pneumonitis on the background of chronic interstit ial change. 2. Mild cardiomegaly. ACT 112: Negative or not required by law. Electronically signed by: Mann Orourke M.D. 11/22/2021 11:48 AM
[2021-11-22 12:09] LABS: Albumin Globulin Ratio 1.5 (0.9-2); Albumin Level 4.1 gm/dl (3.4-5.0); BUN Creatinine Ratio 21.4 (10-20); Bilirubin,Total 0.7 mg/dl (0.2-1.0); Calcium 9.2 mg/dl (8.5-10.1); Creatinine Clr Calc Pharmacy 36.5 ml/min; Est GFR (African American) 59.7 ml/min; Est GFR (Non-African American) 51.5 ml/min; Globulin 2.7 gm/dl (2.5-4.0); Potassium 3.9 mmol/L (3.5-5.1); Total Protein 6.8 gm/dl (6.0-8.3)
[2021-11-22 12:14] LABS: Troponin I High Sensitivity 17.3 pg/ml (0-14)
--- NOTE | 2021-11-22 13:32 | History & Physical Report ---
Date of Service November 22, 2021 Assessment & Plan (1) Syncope: Plan: Patient with syncopal event while shopping preceded by feeling hot and diaphoresis, unsure of time. Awakened without confusion or focal neurological deficits - DDX: possible conduction abn from underlying lung disease vs. atrial/ventricular dysrrhythmia vs. 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 Patient presents today following reported syncopal episode at [facility] while grocery shopping. Patient was accompanied with her daughter. They were shopping together, but were doing so separately. She states that she was just walking up the aisle and started to feel hot and sweaty, so she sat on the edge of the shelf. She then remembers being helped up and placed in wheelchair. Her daughter was summoned to the front of the store where her she states her mom was in a wheelchair and just appeared sweaty and maybe a little pale. The patient denies any feeling of dizziness prior to episode, chest pain, shortness of breath, or flashing lights in front of her eyes. She reports not being confused afterwards as well as no loss of bowel or bladder, however she has had diarrhea since the event x3 that is brown in nature without blood or mucous. Up until today she reports that she has been feeling well. She ate breakfast this morning and did take all of her medications. No repeat of symptomatology while up and going to bathroom. Patient had ECG and CXR as well as routine labs performed in the EMD to include HScTNI. Labs were remarkable for NA of 135, normal electrolytes and renal function, no elevated WBC and HScTNI mildly elevated at 17. Patient will be observed on telemetry overnight and obtain ECHO as well as diagnostic CT scan of her chest performed. Patient has history of interstitial thickening noted previous with some worsening noted on today's exam. 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 She reports that she used to be on Symbicort but did not like taking it. This was presumed for her asthma followed by her PCP. Patient last had a stress ECHO in 2018 at this institution which was normal and mild aortic insufficiency. COVID test on admission is: NEGATIVE Allergies Allergy/AdvReac Type Severity Reaction Status Date / Time amoxicillin Allergy Unknown HIVES Verified 04/12/20 14:58 Home Medications Medication Instructions Recorded Confirmed Type amlodipine 5 mg tablet 5 mg PO HS 05/15/19 04/01/20 History lisinopril 20 1 tab PO DAILY 05/15/19 04/01/20 History mg-hydrochlorothiazide 12.5 mg tablet Past Med/Surg History Medical History (Updated 11/22/21 @ 13:45 by MAURO Bellamy) Asthma HTN (hypertension) Lumbar compression fracture Lumbar spinal stenosis Neurogenic claudication Piriformis syndrome Scoliosis Surgical History History of appendectomy History of knee replacement, total right knee Social History Smoking Status: Never smoker Hx Alcohol Use: No Hx Substance Use: No Preferred Language: Congolese Communication Ability: Effective Visual Impairment: Limited Hearing Ability: Hard of Hearing Beliefs That Will Affect Care: None marital status: / Current Living Situation: Alone current occupational status: retired Feels Safe at Home: Yes Review of Systems Review of Systems: REVIEW OF SYSTEMS: Constitutional: (+) sweatiness, No fever, sweats or chills Eyes: No diplopia, no worsening or blurred vision ENT: normal hearing, no trouble swallowing Respiratory: No cough, sputum, dyspnea at rest or on exertion Cardiovascular: (+) syncope, No chest pain, tightness or palpitations Abdomen: (+) diarrhea, No pain, nausea, vomiting, diarrhea or constipation Musculoskeletal: No joint pain, calf pain, swelling Neurologic: No weakness, numbness/tingling, or balance problems Psychiatric: No anxiety or depression Skin: No rash or itch Physical Exam Physical Exam: PHYSICAL EXAM: General: awake, alert, no apparent distress Head: Normocephalic, atraumatic ENT: PERRL, EOMI, no pharyngeal exudate, mucous membranes moist Neuro: AAO x 3, speech clear and appropriate, strength intact bilaterally 5/5, sensation intact and equal all extremities and dermatomes, no pronator drift, no ataxia, or finger to nose overshoot, and no visual field loss Chest: equal rise and fall of the chest, no accessory muscle use, no heaves or thrills, decrease in bases with fine crackles on inspiration, on room air, Cardiac: Regular rate and rhythm, telemetry reviewed- NSR with PAC, skin warm dry, cap refill <3 seconds, peripheral pulses +2 no JVD, no murmur, no edema GI: NABS x 4 quadrants, soft, nontender to palpation, no rebound, guarding or tenderness : Spontaneously voiding, no pain, no CVA tenderness, Extremities: Normal inspection, no peripheral edema or erythema, calfs nontender to palpation Psych: Normal mood and affect Skin: no rash or erythema Results & Data Results & Data ([facility]) Vital Signs (Past 12 Hours) Vital Signs Temp Pulse Pulse Resp BP BP Pulse Ox 11/22/21 13:01 79 17 122/81 97 11/22/21 11:38 73 17 120/81 93 11/22/21 11:33 73 17 100 11/22/21 10:52 36.9 C 92 H 16 137/81 96 O2 Del Method 11/22/21 13:01 Room Air 11/22/21 11:38 Room Air 11/22/21 11:33 Room Air 11/22/21 10:52 Room Air Laboratory Results Abnormal lab results 11/22/21 11/22/21 Range/Units 11:30 11:30 Neut # (Auto) 7.71 H (1.4-6.5) K/uL Immature Gran # (Auto) 0.05 H (0.00-0.02) K/uL Sodium 135 L (136-145) mmol/L BUN/Creatinine Ratio 21.4 H (10-20) Glucose 118 H (70-99(Fasting)) mg/dl Troponin I High Sens 17.3 H (0-14) pg/ml Diagnostic Findings Chest X-Ray 11/22/21 11:19 XR chest 1V portable HISTORY: syncope COMPARISON: Chest 09/23/2017. FINDINGS: No pneumothorax. The cardiac silhouette is mildly enlarged. There is diffuse interstitial thickening most pronounced within the lower lung zones. Th ere are hazy bibasilar densities. No evidence for pulmonary edema. No acute rib fractures. No pleural effusions. IMPRESSION: 1. Diffuse interstitial thickening most pronounced within the lower lung zones. This has progressed in the interval and could represent an interstitial pneumonitis on the background of chronic interstitial change. 2. Mild cardiomegaly. ACT 112: Negative or not required by law. Electronically signed by: Mann Orourke M.D. 11/22/2021 11:48 AM Medications Administered Home Medications amlodipine 5 mg tablet 5 mg PO HS 05/15/19 [History Confirmed 04/01/20] lisinopril 20 mg-hydrochlorothiazide 12.5 mg tablet 1 tab PO DAILY 05/15/19 [History Confirmed 04/01/20] ECG Additional Comments: 22-NOV-2021 11:12:49 [facility]-EDSTAT ROUTINE RETRIEVAL Normal sinus rhythm Possible Left atrial enlargement Left ventricular hypertrophy Abnormal ECG When compared with ECG of 23-SEP-2017 11:17, Premature ventricular complexes are no longer Present Questionable change in QRS axis Nonspecific T wave abnormality now evident in Lateral leads Code Status & VTE Plan Code Status CODE: FULL VTE: SCDS, Lovenox 40mg sc daily VTE Prophylaxis Plan VTE Prophylaxis will be ordered: Yes Supervising Physician Co-Signing Physician Notes Patient seen and examined, chart reviewed, case discussed with MAURO Timmons and I agree with the assessment and plan as above except as otherwise noted Labs and images reviewed 86yo F who presents with a brief syncopal episode while sitting on the edge of a shelf. Patient did have awareness that she was getting lightheaded and dizzy, and was able to sit before passing out and awoke with people around her, felt back to her normal after several minutes. No chest pain, shortness of breath, difficulty breathing at any time. At bedside she is in her normal state of h ealth, breathing is unlabored, lungs are clear, heart rate is regular. Sodium with very mild decrease to 135, potassium normal, creatinine normal at baseline at admitting creatinine 0.98, high-sensitivity troponin with trace elevation to 17.3, CXR with diffuse interstitial thickening pronounced in the lower lobes, EKG reviewed, no ST depressions or elevations greater than 1 mm. Agree with syncopal eval above. Echo, CTchest given unclear chronicity of basal infiltrates, continue on telemetry. Trace elevation in troponin, trend overnight. PG Care Time/CCT Total # of Minutes Spent Total Time Spent with Patient: Total time spent is greater than 50% in coordination of care (as documented) at patient's floor/unit and/or counseling patient: Coding Level of Care Code INT OBSERVATION CARE 68M LVL 3 Diagnoses Syncope R55 HTN (hypertension) I10 Abnormal chest xray R93.89 Elevated troponin R77.8
--- NOTE | 2021-11-22 14:02 | Electrocardiogram Report ---
Test Reason : Blood Pressure : / mmHG Vent. Rate : 075 BPM Atrial Rate : 075 BPM P-R Int : 138 ms QRS Dur : 082 ms QT Int : 422 ms P-R-T Axes : 097 -20 044 degrees QTc Int : 471 ms Normal sinus rhythm Left atrial enlargement Leftward axis Left ventricular hypertrophy Abnormal ECG When compared with ECG of 23-SEP-2017 11:17, Premature ventricular complexes are no longer Present Questionable change in QRS axis Nonspecific T wave abnormality now evident in Lateral leads Confirmed by River Williamson ([id number]) on 11/22/2021 2:02:13 PM Referred By: REFERRED SELF Confirmed By:River Williamson
--- NOTE | 2021-11-22 14:34 | CT Scan Report ---
CT chest diagnostic wo con CT DOSE: 213.58 mGy.cm HISTORY: Abnormal chest x-ray. Progressive intersitial thickening TECHNIQUE: Multiaxial CT images of the chest were performed without contrast. A dose lowering techni que was utilized adhering to the principles of ALARA. COMPARISON: Chest 11/22/2021. FINDINGS: Posterior motion artifact results in suboptimal evaluation of the lung bases. Mild biapical pleural parenchymal scarlike densities are noted. No pneumothorax. There is a 6 mm irregular nodular density within the left lung apex on image 43. A few additional scattered micronodules within the zuri ng apices. A 3 mm subpleural nodule within the left upper lobe on image 85. No focal lung consolidati ons to suggest a pneumonia. No evidence for pulmonary edema. A 4 mm nodule within the left lower lobe on image 128. No abnormal interstitial thickening within the lung bases. A 3 mm nodule within the ri ght upper lobe on image 115. A 3 mm nodule within the right lower lobe on image 99 and 95 the central airways are patent. No pneumothorax. No pleural effusions. Limited views of the upper abdomen demons trate a normal liver, spleen, and adrenal glands. There is a tiny hiatus hernia. Normal caliber esoph tiffanie. No mediastinal or hilar lymphadenopathy. The heart is normal in size. No pericardial effusion. Severe coronary artery calcifications are noted. Mild aneurysmal dilatation of the ascending thoracic aorta measuring up to 4.1 cm in diameter. IMPRESSION: 1. No focal lung consolidations to suggest pneumonia. 2. The ascending thoracic aorta measures up to 4.1 cm in diameter. 3. Severe calcified plaque within the coronary arteries. 4. A few scattered subcentimeter pulmonary nodules with the largest in the left upper lobe measuring 6 mm. Please refer to the chart below for recommended follow-up. Please refer to below summary of Fleischner criteria recommendations for follow-up of incidental CT n odules (Benjamin Mckenna, Guidelines for management of small pulmonary nodules detected on CT scans: A sta tement from the Fleischner Society, Radiology 237: [phone].) SOLID NODULES Solitary nodule size: <6 mm * Low risk patients: no follow-up needed * high risk patients: optional CT at 12 months Solitary nodule size: 6-8 mm * Low risk patients: follow-up at 6-12 months, then consider further follow-up at 18-24 months * high risk patients: initial follow-up CT at 6-12 months and then at 18-24 months if no change Solitary nodule size: >8 mm * either low or high risk patients - consider follow-up CT at 3 months, and/or CT-PET, and/or biopsy Multiple nodules size: <6 mm * Low risk patients: no routine follow-up * high risk patients: optional CT at 12 months Multiple nodules size: 6-8 mm * Low risk patients: follow-up at 3-6 months, then consider further follow-up at 18-24 months * high risk patients: follow-up at 3-6 months, then at 18-24 months if no change Multiple nodules size: >8 mm * Low risk patients: follow-up at 3-6 months, then consider further follow-up at 18-24 months * high risk patients: follow-up at 3-6 months, then at 18-24 months if no change Note: newly detected indeterminate nodule in persons 35 years of age or older. * Low risk patients: minimal or absent history of smoking and/or other known risk factors * high risk patients: history of smoking or of other known risk factors (e.g. first degree relative with lung cancer, or exposure to asbestos, radon, uranium) * if a nodule up to 8 mm is partly solid or is ground glass further follow-up is required after 24 m onths to exclude possible slow growing adenocarcinoma (HOLLY) SUBSOLID NODULES Solitary pure ground-glass nodule * nodule size <6 mm - no CT follow-up required * nodule size >=6 mm - follow-up CT at 6-12 months, then every 2 years until 5 years Solitary part-solid nodule * nodule size <6 mm - no CT follow-up required * nodule size >=6 mm - follow-up CT at 3-6 months. If unchanged, and solid component remains <6 mm, then annual follow-up for 5 years Multiple subsolid nodules * nodule size <6 mm - follow-up CT at 3-6 months, consider further follow-up at 2 and 4 years if sta ble * nodule size >=6 mm - follow-up CT at 3-6 months, subsequent management based on the most suspiciou s nodule(s) ACT 112: Negative or not required by law. Electronically signed by: Mann Orourke M.D. 11/22/2021 2:31 PM
[2021-11-22] MEDS ORDERED: GLUCAGON FOR INJ 1 MG VIAL SQ PRN (16:39)
[2021-11-22] MEDS ORDERED: DEXTROSE 50% 50 ML SYRINGE IV PRN (16:39)
[2021-11-22] MEDS ORDERED: ONDANSETRON INJ 2 MG/ML 2 ML VIAL IV PRN (16:39)
[2021-11-22] MEDS ORDERED: CARBOHYDRATES FOR HYPOGLYCEMIA PO PRN (16:39)
[2021-11-22] MEDS ORDERED: GLUCOSE 40% GEL 15 GM TUBE PO PRN (16:39)
[2021-11-22] MEDS ORDERED: GLUCOSE 10 TAB/TUBE PO PRN (16:39)
[2021-11-22] MEDS ORDERED: ACETAMINOPHEN 325 MG TAB PO PRN (16:39)
[2021-11-22] MEDS ORDERED: OPTIRAY 300 500mL IV ONE (19:12)
--- NOTE | 2021-11-22 19:42 | CT Scan Report ---
CT angio abdomen pelvis w con HISTORY: Lower GI bleed. TECHNIQUE: Multiaxial CT images of the abdomen and pelvis were performed following the intravenous ad ministration of 114 cc of Optiray 300. Maximum intensity projection images were also obtained. COMPARISON STUDY: Chest CT 11/22/2021. FINDINGS: There are old compression deformities at L3 and L4. No pneumoperitoneum. No pneumatosis. Sm all fat-containing bilateral inguinal hernias. The bladder is unremarkable. There are few calcified u terine fibroids. No pelvic free fluid. There is mild pelvic floor collapse. Colonic diverticulosis. N o evidence for acute diverticulitis. There is fjbb-ro-[id number] circumferential thickening involving t he distal transverse colon and descending colon with mild pericolonic fat stranding. This is consiste nt with a nonspecific colitis. Mild calcified plaque within the aorta and its major branches. No evid ence for an aortic dissection or aneurysm. The iliac arteries are widely patent. No significant steno sis or occlusion within the celiac, superior mesenteric, or inferior mesenteric arteries. The main po rtal vein appears patent. No significant stenosis within the renal arteries. There is a tiny hiatus h ernia. Mild hepatic steatosis. The gallbladder is mildly distended. No gallbladder wall thickening. T here is a 1.3 cm gallstone. The pancreas is unremarkable. The adrenal glands and kidneys are suboptim ally assessed due to the motion artifact. There is mild bilateral cortical renal scarring. No hydrone phrosis. Mild nodular thickening of the left adrenal gland. The right adrenal gland appears unremarka ble. No retroperitoneal lymphadenopathy. No evidence for a bowel obstruction. IMPRESSION: 1. Mild to moderate circumferential thickening involving the distal transverse colon and descending c olon consistent with a nonspecific colitis. This could be due to an infectious or inflammatory proces s. Ischemic colitis could also have a similar appearance. However, the major mesenteric arteries appe ar patent. 2. No evidence for bowel obstruction. 3. Cholelithiasis and mild gallbladder distention. No gallbladder wall thickening. 4. Hepatic steatosis. 5. Additional findings as described above. ACT 112: Negative or not required by law. Electronically signed by: Mann Orourke M.D. 11/22/2021 7:40 PM
[2021-11-22] MEDS ORDERED: amLODIPine BESYLATE 5 MG TAB PO SCH (21:00)
[2021-11-23 05:54] LABS: Basophils # (auto) 0.02 K/uL (0-0.2); Basophils % (auto) 0.2 %; Eosinophils # (auto) 0.26 K/uL (0-0.50); Hematocrit (blood only) 36.5 % (34.1-44.9); Hemoglobin 12.8 g/dl (12.0-16.0); Immature Granulocytes # (auto) 0.05 K/uL (0.00-0.02); Immature Granulocytes % (auto) 0.4 %; Lymphocytes # (auto) 1.69 K/uL (1.2-3.4); Lymphocytes % (auto) 12.9 %; Mean Corpuscular Hemoglobin 32.5 pg (25.0-34.0); Mean Corpuscular Hgb Conc 35.1 g/dL (32.0-36.0); Mean Corpuscular Volume 92.6 fL (80.0-100.0); Mean Platelet Volume 10.3 fL (9.4-12.3); Monocytes # (auto) 1.16 K/uL (0.24-0.82); Monocytes % (auto) 8.8 %; Neutrophils # (auto) 9.96 K/uL (1.4-6.5); Neutrophils % (auto) 75.7 %; Platelet Count 237 K/uL (130-400); RDW Coefficient of Variation 13.2 % (11.5-14.5); RDW Standard Deviation 44.7 fL (36.4-46.3); Red Blood Count 3.94 M/uL (3.93-5.22); White Blood Count 13.14 K/ul (4.8-10.8)
[2021-11-23 06:23] LABS: Troponin I High Sensitivity 22.4 pg/ml (0-14)
[2021-11-23 06:30] LABS: BUN Creatinine Ratio 24.3 (10-20); Calcium 8.9 mg/dl (8.5-10.1); Chol HDL Ratio 3.3 (0-5); Creatinine Clr Calc Pharmacy 50.9 ml/min; Est GFR (African American) 89.7 ml/min; Est GFR (Non-African American) 77.4 ml/min; Potassium 3.7 mmol/L (3.5-5.1)
--- NOTE | 2021-11-23 07:16 | Hospitalist Progress Note ---
Date of Service November 23, 2021 Assessment & Plan (1) Syncope: Plan: Gracy is an 86 year old female w/ PmHx HTN, mild persistent asthma, chronic SI joint pain, R knee replacement admitted for syncope workup. Syncope: -1 episode of syncope w/o known injury to head. -High sensitivity troponin mildly increased. Echo w/ EF 55-60%, no wall motion abnormalities, mild concentric L ventricular hypertrophy. -Lipid profile, TSH WNL. Mild raise in WBC from 9.7 to 13.14. -CXR w/ diffuse interstitial thickening, mostly lower lung zones, but Chest CT w/o evidence for PNA -CT A&P: mild to mod circumferential thickening distal transverse colon & descending colon consistent w/ nonspecific colitis - major mesenteric arteries appear patent. No evidence of bowel obstruction. -Differential includes dehydration, HUS from infectious colitis, interstitial lung disease w/ decreased PaO2, hemorrhoids, vasovagal syncope, TIA, acute Elevated Troponin: HTN: -Continue home lisinopril/hctz daily and amlodipine 5mg qhs. Abnormal CXR/CT chest: -CXR findings as above. Would benefit from outpatient PFTs. -CT chest w/ several lung nodules, largest 6mm. -F/u CT in 3-6 months outpatient. (2) HTN (hypertension): (3) Abnormal chest xray: (4) Elevated troponin: Admission and Anticipated Discharge Date Admission Date: November 22, 2021 Subjective Patient seen at the bedside this morning feeling well. Patient says she doesn't have any fevers, chills, shortness of breath, chest pain, nausea, abdominal pain, headaches. She says she feels normal and back to her normal self. She endorses she did have a bowel movement yesterday that was said to be bloody by the nurse with a few small clots. She says she had another bowel movement this moring with a little blood in it possibly. She does not have any history of anything like this happening before. She denies any past history of heart disease. She claims she remembers feeling hot/warm before going to the edge of the [employer] shelf and setting herself down and when she awoke she was surrounded by girls - denies hitting her head or anyone claiming she hit her head. She denies eating any unusual, seafood, or undercooked food and denies any diarrhea or hematochezia prior to this episode. Patient states she drinks about 1 glass of water in the morning and then maybe an additional half or full glass of water the rest of the day. Review of Systems Constitutional: as per Subjective / HPI Physical Exam Constitutional: WD/WN, vitals as above Eyes: PERRL, conjunctivae normal, anicteric sclerae Respiratory: normal respiratory effort, lungs clear to auscultation Cardiovascular: RRR, no murmur, no edema Gastrointestinal (Abdomen): normal bowel sounds, soft, nontender, no hepatosplenomegaly Skin: no rashes, warm and dry Psychiatric: A+Ox3, euthymic affect Results & Data Results & Data ([facility]) Vital Signs (Past 12 Hours) Vital Signs Temp Pulse Pulse Resp BP BP Pulse Ox 11/23/21 07:05 60 11/23/21 02:16 36.7 C 80 16 159/79 H 93 11/22/21 22:25 71 11/22/21 22:10 36.6 C 73 16 171/73 H 94 11/22/21 21:30 68 22 94 11/22/21 21:30 135/61 11/22/21 21:20 73 20 11/22/21 21:10 70 21 95 11/22/21 21:00 70 16 94 11/22/21 21:00 130/101 H 11/22/21 20:50 67 15 93 11/22/21 20:40 69 19 94 11/22/21 20:32 84 19 92 11/22/21 20:20 66 16 93 11/22/21 20:10 76 18 93 11/22/21 20:00 71 21 95 11/22/21 20:00 154/100 H 11/22/21 19:50 71 20 97 11/22/21 19:40 72 20 95 11/22/21 19:30 74 27 H 96 11/22/21 19:20 78 20 97 11/22/21 19:18 96/75 L O2 Del Method 11/23/21 07:05 11/23/21 02:16 Room Air 11/22/21 22:25 11/22/21 22:10 Room Air 11/22/21 21:30 11/22/21 21:30 11/22/21 21:20 11/22/21 21:10 11/22/21 21:00 11/22/21 21:00 11/22/21 20:50 11/22/21 20:40 11/22/21 20:32 11/22/21 20:20 11/22/21 20:10 11/22/21 20:00 11/22/21 20:00 11/22/21 19:50 11/22/21 19:40 11/22/21 19:30 11/22/21 19:20 11/22/21 19:18 (1) Syncope Syncope type: unspecified Qualified Code(s): R55 - Syncope and collapse
[2021-11-23] MEDS ORDERED: LISINOPRIL/HCTZ 20/12.5MG 1 TAB TAB PO SCH (09:00)
[2021-11-23] MEDS ORDERED: ENOXAPARIN INJ 40 MG/0.4 ML SYR SQ SCH (09:00)
--- NOTE | 2021-11-23 12:04 | XCELERA ---
[id number]
--- NOTE | 2021-11-23 12:54 | Electrocardiogram Report ---
Test Reason : Blood Pressure : / mmHG Vent. Rate : 068 BPM Atrial Rate : 068 BPM P-R Int : 144 ms QRS Dur : 084 ms QT Int : 470 ms P-R-T Axes : 052 011 037 degrees QTc Int : 499 ms Normal sinus rhythm Prolonged QT Nonspecific T wave abnormality Abnormal ECG When compared with ECG of 22-NOV-2021 11:12, Nonspecific T wave abnormality, improved in Lateral leads Confirmed by River Williamson ([id number]) on 11/23/2021 12:54:22 PM Referred By: REFERRED SELF Confirmed By:River Williamson
--- NOTE | 2021-11-23 15:13 | Discharge Summary ---
Date of Service November 23, 2021 Admission HPI Per Admitting Provider 86 YOF with medical history of: HTN, mild persistent asthma, chronic SI joint pain, right knee replacement. Patient presents today following reported syncopal episode at [facility] while grocery shopping. Patient was accompanied with her daughter. They were shopping together, but were doing so separately. She states that she was just walking up the aisle and started to feel hot and sweaty, so she sat on the edge of the shelf. She then remembers being helped up and placed in wheelchair. Her daughter was summoned to the front of the store where her she states her mom was in a wheelchair and just appeared sweaty and maybe a little pale. The patient denies any feeling of dizziness prior to episode, chest pain, shortness of breath, or flashing lights in front of her eyes. She reports not being confused afterwards as well as no loss of bowel or bladder, however she has had diarrhea since the event x3 that is brown in nature without blood or mucous. Up until today she reports that she has been feeling well. She ate breakfast this morning and did take all of her medications. No repeat of symptomatology while up and going to bathroom. Patient had ECG and CXR as well as routine labs performed in the EMD to include HScTNI. Labs were remarkable for NA of 135, normal electrolytes and renal function, no elevated WBC and HScTNI mildly elevated at 17. Patient will be observed on telemetry overnight and obtain ECHO as well as diagnostic CT scan of her chest performed. Patient has history of interstitial thickening noted previous with some worsening noted on today's exam. 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 She reports that she used to be on Symbicort but did not like taking it. This was presumed for her asthma followed by her PCP. Patient last had a stress ECHO in 2018 at this institution which was normal and mild aortic insufficiency. COVID test on admission is: NEGATIVE Admission Exam Per Admitting Provider General: awake, alert, no apparent distress Head: Normocephalic, atraumatic ENT: PERRL, EOMI, no pharyngeal exudate, mucous membranes moist Neuro: AAO x 3, speech clear and appropriate, strength intact bilaterally 5/5, sensation intact and equal all extremities and dermatomes, no pronator drift, no ataxia, or finger to nose overshoot, and no visual field loss Chest: equal rise and fall of the chest, no accessory muscle use, no heaves or thrills, decrease in bases with fine crackles on inspiration, on room air, Cardiac: Regular rate and rhythm, telemetry reviewed- NSR with PAC, skin warm dry, cap refill <3 seconds, peripheral pulses +2 no JVD, no murmur, no edema GI: NABS x 4 quadrants, soft, nontender to palpation, no rebound, guarding or tenderness : Spontaneously voiding, no pain, no CVA tenderness, Extremities: Normal inspection, no peripheral edema or erythema, calfs nontender to palpation Psych: Normal mood and affect Skin: no rash or erythema Principal Diagnosis Syncope Discharge Exam Constitutional WD/WN, vitals as above Eyes PERRL, conjunctivae normal, anicteric sclerae Respiratory normal respiratory effort, lungs clear to auscultation Cardiovascular RRR, no murmur, no edema Gastrointestinal (Abdomen) normal bowel sounds, soft, nontender, no hepatosplenomegaly Skin no rashes, warm and dry Psychiatric A+Ox3, euthymic affect Discharge Data Allergies Allergy/AdvReac Type Severity Reaction Status Date / Time amoxicillin Allergy Unknown HIVES Verified 04/12/20 14:58 Consultations 11/22/21 12:48 ED Decision to Admit Stat 11/22/21 16:39 Consult Lung Nodule Program Routine Ordered Studies 0 11/22/21 CXR IMPRESSION: 1. Diffuse interstitial thickening most pronounced within the lower lung zones. This has progressed in the interval and could represent an interstitial pneumo nitis on the background of chronic interstitial change. 2. Mild cardiomegaly. 11/22/21 13:40 CT chest diagnostic wo con Routine IMPRESSION: 1. No focal lung consolidations to suggest pneumonia. 2. The ascending thoracic aorta measures up to 4.1 cm in diameter. 3. Severe calcified plaque within the coronary arteries. 4. A few scattered subcentimeter pulmonary nodules with the largest in the left upper lobe measuring 6 mm. Please refer to the chart below for recommended follow-up. 11/22/21 18:52 CT angio abdomen pelvis w con Stat IMPRESSION: 1. Mild to moderate circumferential thickening involving the distal transverse colon and descending colon consistent with a nonspecific colitis. This could be due to an infectious or inflammatory process. Ischemic colitis could also have a similar appearance. However, the major mesenteric arteries appear patent. 2. No evidence for bowel obstruction. 3. Cholelithiasis and mild gallbladder distention. No gallbladder wall thickening. 4. Hepatic steatosis. 5. Additional findings as described above. Hospital Course (1) Syncope: Gracy is an 86 year old female w/ PmHx HTN, mild persistent asthma, chronic SI joint pain, R knee replacement admitted for syncope workup. Syncope: -1 episode of syncope w/o known injury to head. -High sensitivity troponin mildly increased but peaked. Echo w/ EF 55-60%, no wall motion abnormalities, mild concentric L ventricular hypertrophy. -Lipid profile, TSH WNL. Mild raise in WBC from 9.7 to 13.14. Vitals stable throughout stay. -CXR w/ diffuse interstitial thickening, mostly lower lung zones, but Chest CT w/o evidence for PNA -CT A&P: mild to mod circumferential thickening distal transverse colon & descending colon consistent w/ nonspecific colitis - major mesenteric arteries appear patent. No evidence of bowel obstruction. -Less likely cardiac in nature given above findings, more likely dehydration aspect given only 1.5-2 cups of water intake per day as well as possible vasovagal contribution from colitis. -Educated patient on proper hydration, colitis as below. Blood in stool: -Patient w/ episode of blood in stool on admission w/ few small clots followed by small amount in stool next morning. -No previous diarrhea or blood noticed in stool prior to arrival to hospital. -Given the above findings on CT A&P most likely either hemorrhoid induced vs colitis. -Instructed patient to add MiraLAX daily to regimen. Should resolve w/ supportive care, however if persists would benefit from further workup with outpatient endoscopy/colonoscopy. Elevated Troponin: -17.3 -> 19.1 -> 22.4 -> 18.8 -Most likely secondary to dehydration syncopal demand ischemia. Abnormal CXR/CT chest: -CXR findings as above. Would benefit from outpatient PFTs. -CT chest w/ several lung nodules, largest 6mm. -F/u CT in 3-6 months outpatient. (2) HTN (hypertension): (3) Abnormal chest xray: (4) Elevated troponin: Total Time Total Time Spent Total Time Spent (In Minutes): Please see attending attestation. Discharge Plan Discharge Items Patient Disposition: Home - Self-Care Reason For Visit: SYNCOPE Discharge Diagnosis: Syncope Activity: Per Instructions section Non-emergency contact: Primary Care Provider Call non-emergency contact if: your symptoms worsen, your pain is worsening and your temperature is above 101 Follow-up/Referrals: Edvin Watkins MD [Primary Care Provider] - 12/01/21 2:00 pm (Appointment with Miranda Means PA-C) Diet: Regular Addtl Attending Provider Instructions: A discharge summary will be sent to your primary care physician to ensure continuity of care. You came into the hospital for an episode of syncope that happened while you were grocery shopping. You came to the hospital for evaluation and further work up of the syncope. An echocardiogram was performed which showed good ejection fraction of your heart and good wall motion - no concern for an acute cardiac issue. Your lipids (cholesterol, triglycerides, etc), thyroid function, hemoglobin, electrolytes and kidney function all looked to be within normal limits. There were a few small nodules in your lungs seen on CT scan of your chest which were small in size (6mm and smaller) and should be benign. It is recommended to follow up imaging of these nodules in 3-[address] scan of your abdomen and pelvis showed no evidence of acute bleed, however there was evidence of some inflammation around your colon. This inflammation may be due to an acute GI infection that should resolve along with the blood in your stool, the blood in your stool may also be from internal hemorrhoids. Please take MiraLAX daily to help with the blood in your stool to help ensure resolution. At this time we believe that the episode of syncope was due to dehydration along with maybe some contribution from the GI infection. As such to ensure this does not happen again please make sure you keep adequately hydrated by drinking at least 4-5 glasses of water per day. Follow-up: * You should be seen by your primary physician within the next week. Medications: Your medication list has been reviewed and reconciled upon discharge to ensure accuracy and continuity of care. Take your medications as instructed; do not skip a dose of your medicines. Make sure all of your doctors know every medicine you are taking (including [id number] medicines, vitamins, and supplements). let your primary care provider know before taking any new medicines because some of these may interact with your current medications, or may make your symptoms worse. CONTACT YOUR PRIMARY CARE PROVIDER if you experience any of the following: * Fevers or shaking chills * Shortness of breath not relieved by inhalers, fainting * Sudden abdominal distension not relieved by catheterization. * Difficulty following your treatment plan, or difficulty taking medications CALL 911 OR GO TO THE EMERGENCY DEPARTMENT if you experience any of the following: * Sudden, severe abdominal pain or nausea/vomiting * Severe chest pain, or chest pain that radiates (moves) to your jaw or arm * Sudden, severe shortness of breath or difficulty breathing It was was our pleasure taking care of you here at [facility] . Thank you for allowing us to participate in your care. Pending Studies at Discharge: No Stand-Alone Forms: My [facility] [employer], Smoking Cessation Medications and DC Order Prescriptions: Continued lisinopril-hydrochlorothiazide 20-12.5 mg tablet 1 tab PO DAILY amlodipine 5 mg tablet 5 mg PO HS betamethasone acet,sod phos 6 mg/mL suspension 12 mg IA ONCE Qty: 2 0RF Discharge Orders: Discharge Order (Routine); Ordered 11/23/21 Ordered By: Mohan Moser Admission Data Admit Date/Time: 11/22/21 13:27 Attending Provider: Abel Vasquez Admit Provider: Anthony Mares Primary Care Provider: Edvin Watkins Other Providers: Anthony Mares Other Interventions: Discharge Summary Assessment (RN) Last Done: 11/23/21 15:03 Supervising Physician Co-Signing Physician Notes I personally examined the patient and verified all wilder points of history and exam, discussed case, and agree with decision making with Dr Moser. Feeling good and really wants to go home. No further bloody diarrhea. Daughter present who is a nurse. Vitals noted, in general she is awake and alert pleasant no distress. HEENT normocephalic atraumatic mucous membranes moist. Breathing unlabored no accessory muscle use good effort. Skin shows no rashes no pallor or icterus. Neuro without focal deficits. Syncopealmost certainly dehydration mediatedencouraged/educated on adequate fluid intake. With reassuring echo and cardiac monitoringsafe/stable for home. Does not really appear that further work-up would be needed, but certainly can discuss further with PCP Bloody bowel movementher symptoms alone would be most consistent with hemorrhoids, although her CT scan from yesterday did show a nonspecific colitis picture. She has no infectious signs or symptoms, other than a very nonspecific mild elevation of white count at 13. With bleeding resolved and no GI symptomsdefinitely safe for home. Discussed that simply looking at the circumstances of an abnormal CT and bloody bowel movements, in that respect a colonoscopy would be warranted, except that with her advanced age it certainly can be foregone. Discussed with patient and daughter, and recommended that they discuss further with PCP. otherwise as above Resident Activity Tracking Resident Involvement: Resident Care Provided Care Provided: Adult Hospital Medicine
--- NOTE | 2021-11-23 18:12 | Billing Data ---
Date of Service November 23, 2021 Coding Level of Care Code 52992 OBS Care - Discharge
== END 2021-11-23 15:28 | disposition home or self-care (01) ==
LOC: EDINP 10:39 → ED 10:39 → SUATTDRO 13:27 → 2N 21:38

== ENCOUNTER 2022-09-17 12:03 | Inpatient (IN) ==
--- NOTE | 2022-09-17 13:33 | XRay Report ---
XR lumbar spine min 4V routine CLINICAL HISTORY: back and hip pain COMPARISON STUDY: Lumbar spine radiograph 03/31/2019. Abdomen and pelvis CT 11/22/2021. Pelvis CT 2022. FINDINGS: Mild levoscoliosis of the lumbar spine, unchanged. Moderate to severe compression deformity is at L3 and L4, unchanged. These are considered to be chronic. No acute fractures within the lumbar spine. The visualized sacrum is intact. Moderate facet degenerative changes again noted within the l umbar spine. There is moderate disc space narrowing at L3-L4 and L4-5. Mild disc space narrowing thro ughout the remaining lumbar spine. Vascular calcifications are noted. IMPRESSION: 1. No significant change in the old compression deformities at L3 and L4. 2. No acute fractures within the lumbar spine. 3. Degenerative changes as described above. ACT 112: Negative or not required by law. Electronically signed by: Mann Orourke M.D. 09/17/2022 1:32 PM
--- NOTE | 2022-09-17 13:36 | XRay Report ---
XR femur LT 2V routine, XR pelvis 1-2V routine CLINICAL HISTORY: fall TECHNIQUE: 2 radiographic views of the left femur and 2 views of the pelvis were obtained. Comparison: None available at the time of this dictation. FINDINGS: There are fractures of the left superior and inferior pubic rami. Degenerative changes are seen in th e hip and knee joints. Vascular calcifications are noted. Calcified fibroids are incidentally noted. IMPRESSION: Left superior and inferior pubic rami fractures are seen. ACT 112: Negative or not required by law. Electronically signed by: Javon Casanova M.D. 09/17/2022 1:34 PM
--- NOTE | 2022-09-17 14:19 | Emergency Department Note ---
History of Present Illness General Chief complaint: Hip Pain Time Seen by Provider: 09/17/22 12:04 History of Present Illness Provider complaint: Hip pain Maximum Pain Intensity: 10 87-year-old female presents emergency department with daughter who is a former nurse. Daughter reports that the patient fell on August 11. They state they were seen in the emergency department and diagnosed with a hip fracture. The daughter reports that the patient was seen by pain management on September 09 and had trigger point injections. The daughter reports that today the patient was reporting increasing pain in her right hip and was having difficulty walking. Home Medications Medication Instructions Recorded Confirmed Type amlodipine 5 mg tablet 5 mg PO HS #90 tabs 08/27/22 09/17/22 Rx lisinopril 20 mg tablet 20 mg PO DAILY #90 tabs 08/27/22 09/17/22 Rx acetaminophen 500 mg tablet 500 mg PO Q6H PRN Pain 09/17/22 09/17/22 History Allergies Allergy/AdvReac Type Severity Reaction Status Date / Time amoxicillin Allergy Unknown HIVES Verified 09/17/22 16:07 Past Med/Surg History Medical History (Updated 09/17/22 @ 18:29 by Bebeto Matute PA-C) Asthma HTN (hypertension) Lumbar compression fracture Lumbar spinal stenosis Myofascial pain Neurogenic claudication Piriformis syndrome Scoliosis Syncope Surgical History History of appendectomy History of knee replacement, total right knee Family History Sister Breast cancer Denies family history of Ovarian cancer Prostate cancer Diabetes Myocardial infarction Lung cancer Colorectal cancer Stroke Social History Smoking Status: Never smoker Second Hand Exposure: No; Do You Dip or Chew Tobacco: No; Hx Alcohol Use: No Hx Substance Use: No Preferred Language: Panamanian Communication Ability: Effective Visual Impairment: Limited Hearing Ability: Hard of Hearing [employer] Required: No Beliefs That Will Affect Care: None marital status: / Current Living Situation: Alone current occupational status: retired How many Children do You have: 4 Feels Safe at Home: Yes Childhood Exposure to Second-Hand Smoke: No caffeine: No Dental Care, Regularly: Yes Physical Activity Frequency: Daily Seatbelt Use: always Sunscreen Use: No Assistive Devices: Hearing Aid - Bilateral Physical Exam Vital Signs Vital Signs - 24 hr 09/17/22 12:08 09/17/22 12:20 09/17/22 13:39 Temperature 36.5 C 36.7 C Temperature Source Oral Oral Pulse Rate 77 73 Pulse Rate [Apical] 76 Pulse Rhythm [Apical] Regular Pulse Strength [Apical] Normal Respiratory Rate 18 18 Respiratory Effort / Characteristics Non-Labored Non-Labored Respiratory Depth Normal Normal Respiratory Pattern Regular Regular Blood Pressure 161/69 H Blood Pressure [Left Arm] 161/69 H Blood Pressure Mean 99 Blood Pressure Mean [Left Arm] 99 Pulse Oximetry 95 94 Oxygen Delivery Method Room Air Room Air Sepsis Recent Fever Within 48 Hours No Sepsis New/Unexplained Change in Mental Status No Sepsis Action Taken by Nursing No Action Required 09/17/22 14:00 Temperature Temperature Source Pulse Rate Pulse Rate [Apical] 74 Pulse Rhythm [Apical] Pulse Strength [Apical] Respiratory Rate 18 Respiratory Effort / Characteristics Respiratory Depth Respiratory Pattern Blood Pressure Blood Pressure [Left Arm] 143/74 H Blood Pressure Mean Blood Pressure Mean [Left Arm] 97 Pulse Oximetry 94 Oxygen Delivery Method Room Air Sepsis Recent Fever Within 48 Hours Sepsis New/Unexplained Change in Mental Status Sepsis Action Taken by Nursing Physical Exam HENT: Exam performed. -Head: Normocephalic and atraumatic. NECK: Normal range of motion. Neck supple. No JVD present. No spinous process tenderness present. No tracheal deviation and normal range of motion present. CV: Normal rate, regular rhythm, normal heart sounds and intact distal pulses. There is no peripheral edema. Palpable radial pulses bue. PULM/CHEST: Effort normal and breath sounds normal. No respiratory distress. No stridor. She has no wheezes. She has no rales. ABD: The abdomen is soft. There is no tenderness. There is no rebound, no guarding. MUSC/SKEL: No C, T, or L-spine tenderness. Pain on palpation of the right sacroiliac area. NEURO: She is alert and oriented to person, place, and time. She has normal strength in her bilateral upper extremities. Decreased strength in her left lower extremity no cranial nerve deficit or sensory deficit.GCS eye subscore is 4. GCS verbal subscore is 5. GCS motor subscore is 6. Course Course 1204: The patient was evaluated in room A4. A complete history and physical exam was performed 1345: Vital signs stable. X-ray viewed by me shows possible left hip fracture. There are pubic rami fractures. Official radiology read shows no acute hip fracture and old pubic rami fractures. Given that the patient is having difficulty moving her left side, will obtain CT of the head and of the hip to make sure there is no fracture of the hip and no traumatic head injury that c ould be causing her symptoms. X-ray of the femur also ordered. 1700: Vital signs stable. CT shows a sacral fracture but no hip fracture. No operable fractures on the patient. Patient states she does not want to be admitted to the hospital. Daughter states that she is having difficulty taking care of the patient at home because she cannot walk or move. We attempted an ambulatory trial with her walker as patient states she thought she could walk but the patient failed. I offered the patient placement at rehab facility such as [facility] but the patient and daughter declined stating that they prefer to be admitted to this facility to have therapy done to see pain management to see orthopedics. We will contact the [facility] hospitalist team to evaluate the patient for admission. 1750: Spoke with Bebeto Matute working with Dr. Odom who states they will admit to their service. Administered Medications Discontinued Medications Tramadol HCl (Tramadol Hcl 50 Mg Tablet) 25 mg PO NOW STA Stop: 09/17/22 17:58 Last Admin: 09/17/22 18:01 Dose: 25 mg Documented By: LILIANA Medical Decision Making Laboratory Data 09/17/22 17:50 09/17/22 17:50 Lab Results 09/17/22 09/17/22 09/17/22 Range/Units 17:50 17:50 18:00 WBC 16.49 H (4.8-10.8) K/ul RBC 3.89 L (4.20-5.40) M/uL Hgb 12.8 (12.0-16.0) g/dl Hct 36.7 L (37.0-47.0) % MCV 94.3 (80.0-100.0) fL MCH 32.9 (25.0-34.0) pg MCHC 34.9 (32.0-36.0) g/dL RDW Std Deviation 49.5 H (36.4-46.3) fL RDW Coeff of [place] 14.5 (11.5-14.5) % Plt Count 317 (130-400) K/uL MPV 9.4 (9.4-12.4) fL Immature Gran % (Auto) 1.0 % Neut % (Auto) 82.7 % Lymph % (Auto) 8.3 % [place] % (Auto) 7.4 % Eos % (Auto) 0.4 % Baso % (Auto) 0.2 % Neut # (Auto) 13.64 H (1.40-6.50) K/uL Lymph # (Auto) 1.37 (1.2-3.4) K/uL [place] # (Auto) 1.22 H (0.11-0.59) K/uL Eos # (Auto) 0.07 (0-0.50) K/uL Baso # (Auto) 0.03 (0-0.2) K/uL Immature Gran # (Auto) 0.16 (0.01-0.20) K/uL Sodium 133 L (136-145) mmol/L Potassium 4.0 (3.5-5.1) mmol/L Chloride 102 (98-107) mmol/L Carbon Dioxide 23 (21-32) mmol/L Anion Gap 8 (3-11) BUN 20 (6-23) mg/dl Creatinine 0.63 (0.6-1.2) mg/dl Est Cr Clr Drug Dosing 55.5 ml/min Est GFR ( Amer) 92.2 ml/min Est GFR (Non-Af Amer) 79.5 ml/min BUN/Creatinine Ratio 31.7 H (10-20) Glucose 105 H (70-99(Fasting)) mg/dl Calcium 9.0 (8.6-10.3) mg/dl SARS-CoV-2, RNA, NAAT NEGATIVE (NEGATIVE) Imaging Data Attestation: I personally reviewed and interpreted this imaging study as follows: My Impression: Pelvis x-ray: Left superior and inferior pubic rami fractures with possible left hip fracture. Left femur x-ray: No femur fracture Right femur x-ray: No acute fracture Radiologist's Impression: Lumbar Spine X-Ray 09/17/22 12:13 XR lumbar spine min 4V routine CLINICAL HISTORY: back and hip pain COMPARISON STUDY: Lumbar spine radiograph 03/31/2019. Abdomen and pelvis CT 11/22/2021. Pelvis CT 08/12/2022. FINDINGS: Mild levoscoliosis of the lumbar spine, unchanged. Moderate to severe compression deformity is at L3 and L4, unchanged. These are considered to be chronic. No acute fractures within the lumbar spine. The visualized sacrum is intact. Moderate facet degenerative changes again noted within the lumbar spine. There is moderate disc space narrowing at L3-L4 and L4-5. Mild disc space narrowing throughout the remaining lumbar spine. Vascular calcifications are noted. IMPRESSION: 1. No significant change in the old compression deformities at L3 and L4. 2. No acute fractures within the lumbar spine. 3. Degenerative changes as described above. ACT 112: Negative or not required by law. Electronically signed by: Mann Orourke M.D. 09/17/2022 1:32 PM Pelvis X-Ray 09/17/22 12:13 XR femur LT 2V routine, XR pelvis 1-2V routine CLINICAL HISTORY: fall TECHNIQUE: 2 radiographic views of the left femur and 2 views of the pelvis were obtained. Comparison: None available at the time of this dictation. FINDINGS: There are fractures of the left superior and inferior pubic rami. Degenerative changes are seen in the hip and knee joints. Vascular calcifications are noted. Calcified fibroids are incidentally noted. IMPRESSION: Left superior and inferior pubic rami fractures are seen. ACT 112: Negative or not required by law. Electronically signed by: Javon Casanova M.D. 09/17/2022 1:34 PM Femur X-Ray 09/17/22 12:55 XR femur LT 2V routine, XR pelvis 1-2V routine CLINICAL HISTORY: fall TECHNIQUE: 2 radiographic views of the left femur and 2 views of the pelvis were obtained. Comparison: None available at the time of this dictation. FINDINGS: There are fractures of the left superior and inferior pubic rami. Degenerative changes are seen in the hip and knee joints. Vascular calcifications are noted. Calcified fibroids are incidentally noted. IMPRESSION: Left superior and inferior pubic rami fractures are seen. ACT 112: Negative or not required by law. Electronically signed by: Javon Casanova M.D. 09/17/2022 1:[address] 09/17/22 13:[address] DOSE: 1172.45 mGy.cm HISTORY: fall L hip pain TECHNIQUE: Multiaxial CT images of the left hip were performed and reformatted in the sagittal and coronal plane without the use of contrast. A dose lowering technique was utilized adhering to the principles of ALARA. COMPARISON: Pelvis CT 08/12/2022. FINDINGS: There is an acute nondisplaced fracture within the left sacrum. There are healing left superior and inferior pubic rami fractures which are slightly displaced. These remain unchanged in alignment. No acute fracture or dislocation within the proximal left femur. No soft tissue hematoma identified within the left hip. Vascular calcifications are noted. A small fat-containing left inguinal hernia. Partially visualized calcified uterine fibroids are noted. IMPRESSION: 1. Acute nondisplaced fracture within the left sacrum. 2. Healing left superior and inferior pubic rami fractures are again noted. These remain unchanged in alignment. 3. No fracture or dislocation within the proximal left femur. ACT 112: Negative or not required by law. Electronically signed by: Mann Orourke M.D. 09/17/2022 3:45 PM Femur X-Ray 09/17/22 13:55 XR femur RT 2V routine HISTORY: 87 years-old Female fall acute pain of the right hip status post fall COMPARISON: Pelvis radiographs of same day and also 08/12/2022 TECHNIQUE: 2 views of the right femur FINDINGS: Demineralized appearance of the bones. Mild to moderate osteoarthritis of the right hip. No acute fracture or dislocation identified. Right knee arthroplasty. Arterial calcifications. Partially imaged subacute left pelvic ring fractures. Small right knee joint effusion. IMPRESSION: 1. No acute fracture or dislocation identified. 2. Partially imaged subacute left pelvic ring fractures, similar in appearance to the study from 08/12/2022. ACT 112: Negative or not required by law. The above report was generated using voice recognition software. It may contain grammatical, syntax or spelling errors. Electronically signed by: Jeffery Mora M.D. 09/17/2022 3:[address] 09/17/22 14:19 CT head/brain wo con CLINICAL HISTORY: fall Technique: Contiguous axial CT images of the head were acquired from the base of the skull to the vertex without intravenous contrast administration. Images were viewed in brain, subdural and bone windows. Automated dose lowering techniques and/or adjustment according to patient size were utilized for this exam. Comparison: None available at the time of this dictation. Findings: Areas of decreased attenuation are present in the periventricular and subcortical white matter bilaterally consistent with small vessel ischemic disease. Generalized cerebral atrophy with commensurate enlargement of the ventricles, sulci, and cisterns is also present. There is no acute intracranial hemorrhage or evidence of acute territorial infarction. No shift of the midline structures, mass effect, or extra-axial abnormalities are shown. Atherosclerotic calcifications are present in the intracranial segments of the internal carotid arteries. Imaged portions of the paranasal sinuses and mastoid air cells are clear. The orbits appear normal. There are no acute fractures of the calvaria or scalp swelling. Impression: No acute intracranial hemorrhage, no evidence of acute territorial infarction or other acute intracranial disease process. ACT 112: Negative or not required by law. Electronically signed by: Javon Casanova M.D. 09/17/2022 3:48 PM [facility] Narrative 1204: The patient was evaluated in room A4. A complete history and physical exam was performed 1345: Vital signs stable. X-ray viewed by me shows possible left hip fracture. There are pubic rami fractures. Official radiology read shows no acute hip fracture and old pubic rami fractures. Given that the patient is having difficulty moving her left side, will obtain CT of the head and of the hip to make sure there is no fracture of the hip and no traumatic head injury that could be causing her symptoms. X-ray of the femur also ordered. 1700: Vital signs stable. CT shows a sacral fracture but no hip fracture. No operable fractures on the patient. Patient states she does not want to be admitted to the hospital. Daughter states that she is having difficulty taking care of the patient at home because she cannot walk or move. We attempted an ambulatory trial with her walker as patient states she thought she could walk but the patient failed. I offered the patient placement at rehab facility such as [facility] but the patient and daughter declined stating that they prefer to be admitted to this facility to have therapy done to see pain management to see orthopedics. We will contact the [facility] hospitalist team to evaluate the patient for admission. 1750: Spoke with Bebeto Matute working with Dr. dOom who states they will admit to their service. Impression & Plan Closed sacral fracture, Closed fracture of pubic ramus Discharge Plan Visit Data Chief Complaint: Hip Pain ED Provider: Jakob Asencio Discharge Problem: Closed sacral fracture, Closed fracture of pubic ramus Patient Disposition: Being Evaluated by Hospitalist Forms Stand Alone Forms: My [facility] Prescriptions Prescriptions: No Action amlodipine 5 mg tablet 5 mg PO HS Qty: 90 0RF lisinopril 20 mg tablet 20 mg PO DAILY Qty: 90 3RF acetaminophen [Tylenol Ex Str Rapid Release] 500 mg Tablet 500 mg PO Q6H PRN (Reason: Pain) Referrals Referrals: Edvin Watkins MD [Primary Care Provider] - Closed sacral fracture Qualifiers: Encounter type: initial encounter Zone of sacrum fracture: unspecified portion of sacrum Qualified Code(s): S32.10XA - Unspecified fracture of sacrum, initial encounter for closed fracture Closed fracture of pubic ramus Qualifiers: Encounter type: initial encounter Laterality: left Qualified Code(s): S32.592A - Other specified fracture of left pubis, initial encounter for closed fracture
--- NOTE | 2022-09-17 15:45 | XRay Report ---
XR femur RT 2V routine HISTORY: 87 years-old Female fall acute pain of the right hip status post fall COMPARISON: Pelvis radiographs of same day and also 08/12/2022 TECHNIQUE: 2 views of the right femur FINDINGS: Demineralized appearance of the bones. Mild to moderate osteoarthritis of the right hip. No acute fra cture or dislocation identified. Right knee arthroplasty. Arterial calcifications. Partially imaged s ubacute left pelvic ring fractures. Small right knee joint effusion. IMPRESSION: 1. No acute fracture or dislocation identified. 2. Partially imaged subacute left pelvic ring fractures, similar in appearance to the study from 2022. ACT 112: Negative or not required by law. The above report was generated using voice recognition software. It may contain grammatical, syntax o r spelling errors. Electronically signed by: Jeffery Mora M.D. 09/17/2022 3:44 PM
--- NOTE | 2022-09-17 15:46 | CT Scan Report ---
LEFT CT CT DOSE: 1172.45 mGy.cm HISTORY: fall L hip pain TECHNIQUE: Multiaxial CT images of the left hip were performed and reformatted in the sagittal and co jay plane without the use of contrast. A dose lowering technique was utilized adhering to the prin ciples of ANDREW. COMPARISON: Pelvis CT 08/12/2022. FINDINGS: There is an acute nondisplaced fracture within the left sacrum. There are healing left supe rior and inferior pubic rami fractures which are slightly displaced. These remain unchanged in alignm ent. No acute fracture or dislocation within the proximal left femur. No soft tissue hematoma identif ied within the left hip. Vascular calcifications are noted. A small fat-containing left inguinal zuleima ia. Partially visualized calcified uterine fibroids are noted. IMPRESSION: 1. Acute nondisplaced fracture within the left sacrum. 2. Healing left superior and inferior pubic rami fractures are again noted. These remain unchanged in alignment. 3. No fracture or dislocation within the proximal left femur. ACT 112: Negative or not required by law. Electronically signed by: Mann Orourke M.D. 09/17/2022 3:45 PM
--- NOTE | 2022-09-17 15:50 | CT Scan Report ---
CT head/brain wo con CLINICAL HISTORY: fall Technique: Contiguous axial CT images of the head were acquired from the base of the skull to the lottie ihsan without intravenous contrast administration. Images were viewed in brain, subdural and [facility]. Automated dose lowering techniques and/or adjustment according to patient size were utilized for this exam. Comparison: None available at the time of this dictation. Findings: Areas of decreased attenuation are present in the periventricular and subcortical white matter bilate rally consistent with small vessel ischemic disease. Generalized cerebral atrophy with commensurate e nlargement of the ventricles, sulci, and cisterns is also present. There is no acute intracranial hem orrhage or evidence of acute territorial infarction. No shift of the midline structures, mass effect, or extra-axial abnormalities are shown. Atherosclerotic calcifications are present in the intracran ial segments of the internal carotid arteries. Imaged portions of the paranasal sinuses and mastoid air cells are clear. The orbits appear normal. There are no acute fractures of the calvaria or scalp swelling. Impression: No acute intracranial hemorrhage, no evidence of acute territorial infarction or other acute intracra nial disease process. ACT 112: Negative or not required by law. Electronically signed by: Javon Casanova M.D. 09/17/2022 3:48 PM
[2022-09-17] MEDS ORDERED: MoRPHine SULFATE 4 MG/ML 1 ML CARP\\VIAL IV STA (17:27)
--- NOTE | 2022-09-17 17:31 | History & Physical Report ---
Date of Service September 17, 2022 Assessment & Plan (1) Ambulatory dysfunction: Plan: -Admit to med/surge -At this time the patient's ambulatory dysfunction and increased BL LE pain is multifactorial including he known SI joint pain, known subacute non-displaced inferior/superior rami fractures, and now newly diagnosed left sacral fracture -No red flag neurologic symptoms, patient and her daughter denies any recent trauma since discharge from [facility] -Spoke with the center receptionist Orthopedic Surgeon, appreciate their assistance >There would be no change in management if her only new finding is the left sacral fracture >Recommended obtaining a CT of the entire pelvis for further evaluation >If any new findings or need for formal Orthopedics evaluation they are happy to see her tomorrow -Will obtain a non-con CT of the pelvis on admission -PT/OT consults placed -Keep on bedrest until CT of the pelvis results are complete in case of unstable findings -Pain control with q6h PO tylenol, 25 mg PO Tramadol q6h prn pain (5+), and lidocaine patch -Fall precautions -Will wait for admission labs to result before ordering chemical DVT PPX -Heart healthy diet -AM CBC, BMP (2) Closed fracture of pubic ramus: Plan: -See ambulatory dysfunction (3) Closed sacral fracture: Plan: -See ambulatory dysfunction (4) HTN (hypertension): Plan: -Stable -Continue amlodipine and lisinopril Plan The patient was discussed with Dr. Odom at the time of the admission History of Present Illness Chief Complaint: Ambulatory dysfunction, right hip/buttocks pain Primary Care Provider: Edvin Watkins MD Gracy is an 87 year old female with a PMH significant for HTN, mild persistent asthma, chronic SI joint pain, right knee replacement, and recent fall resulting in a non-displaced superior/inferior pelvic rami fractures on 08/10/[address] [facility] ED on 09/17 with her daughter for right buttocks/hip pain and ambulatory dysfunction. In the ED vitals were stable stable, labs are in process at the time of admission. Initially the patient was having difficulty moving her left lower extremity compared to baseline. CT of the head was read as "No acute intracranial hemorrhage, no evidence of acute territorial infarction or other acute intracranial disease process.". Lumbar spine xray was read as "1. No significant change in the old compression deformities at L3 and L4. 2. No acute fractures within the lumbar spine. 3. Degenerative changes as described above.". Xray of the pelvis was read as "Left superior and inferior pubic rami fractures are seen.". ADDENDUM Left superior and inferior pubic rami fractures are subacute and are unchanged from prior exam, comparison was made to CT pelvis. Xray of the right femur was read as "1. No acute fracture or dislocation identified. 2. Partially imaged subacute left pelvic ring fractures, similar in appearance to the study from 08/12/2022.". And CT of the left hip was read as "1. Acute nondisplaced fracture within the left sacrum. 2. Healing left superior and inferior pubic rami fractures are again noted. These remain unchanged in alignment. 3. No fracture or dislocation within the proximal left femur. We were asked to admit the patient for further evaluation, pain management, and possible rehab placement. At time of the exam the patient was sitting in bed in no acute distress with her daughter sitting bedside. Her daughter states that the patient initially went to [facility] rehab after her fall and pelvic rami fractures in August. The patient and her family were frustrated with [facility] as the patient was only given tylenol for pain, so they brought her back home. The patient lives at home alone, but her daughter lives next door, is a nurse, and checks on her frequently. They states that this am the patient has increased right buttocks/SI join pain, pain in the LLE, and decreased ROM and ambulatory disfunction due to the pain. They deny any other falls/trauma since being discharged from [facility]. The patient recently had Right mid-superior gluteal trigger point i njections with [facility] on 09/09, she does not believe that they improved her right SI joint pain. The patient denies recent fever, chills, paresthesias, loss of bowel or bladder function, chest pain, SOB, abd pain, nausea, vomiting, diarrhea,dysuria, hematuria, melena, LE swelling. The patient states that she will consider DC to inpatient rehab if it is determined that it will be needed. The patient wishes to be a full code and for her Daughter to make medical decisions for her if she cannot make them herself. Please refer to Dr. Odom's attestation for ras changes to the treatment plan Allergies Allergy/AdvReac Type Severity Reaction Status Date / Time amoxicillin Allergy Unknown HIVES Verified 09/17/22 16:07 Home Medications Medication Instructions Recorded Confirmed Type amlodipine 5 mg tablet 5 mg PO HS #90 tabs 08/27/22 09/17/22 Rx lisinopril 20 mg tablet 20 mg PO DAILY #90 tabs 08/27/22 09/17/22 Rx acetaminophen 500 mg tablet 500 mg PO Q6H PRN Pain 09/17/22 09/17/22 History Past Med/Surg History Medical History (Updated 09/17/22 @ 18:29 by Bebeto Matute PA-C) Asthma HTN (hypertension) Lumbar compression fracture Lumbar spinal stenosis Myofascial pain Neurogenic claudication Piriformis syndrome Scoliosis Syncope Surgical History History of appendectomy History of knee replacement, total right knee Family History Sister Breast cancer Denies family history of Ovarian cancer Prostate cancer Diabetes Myocardial infarction Lung cancer Colorectal cancer Stroke Social History Smoking Status: Never smoker Second Hand Exposure: No; Do You Dip or Chew Tobacco: No; Hx Alcohol Use: No Hx Substance Use: No Preferred Language: Kyrgyz Communication Ability: Effective Visual Impairment: Limited Hearing Ability: Hard of Hearing Cadd Drafter Required: No Beliefs That Will Affect Care: None marital status: / Current Living Situation: Alone current occupational status: retired How many Children do You have: 4 Other Information That Helps Us Care for You: No Feels Safe at Home: Yes Safety Concerns: Feels Safe At This Time Childhood Exposure to Second-Hand Smoke: No caffeine: No Dental Care, Regularly: Yes Physical Activity Frequency: Daily Seatbelt Use: always Sunscreen Use: No Assistive Devices: Walker Physical Exam Physical Exam: Physical Exam: General: In no acute distress, stated age, well-nourished, good hygiene HEENT: Normocephalic, atraumatic, no scleral icterus, pupils around round, symmetrical, and reactive to light, moist mucus membranes, trachea midline, no thyromegaly Chest/Pulm: No respiratory distress, symmetrical chest expansion, clear breath sounds throughout Cardiac: RRR, no murmurs noted Abdomen: Negative for ascites and bruising, normoactive bowel sounds, soft, non-tender to palpation throughout Musculoskeletal: No acute trauma noted on evaluation of the head, neck, cervical spine, thoracic, spine, and lumbar spine, symmetrical and full ROM of the BL upper extremities, patient with pain to palpation over the right buttocks/SI region, no tenderness to palpation over the BL pelvis/hips, decreased ROM of the BL hips due to pain, symmetrical Strength of the BL hips, knees, and ankles Extremities: Radial, dorsalis pedis, and posterior tibial pulses are intact and symmetrical, no edema noted in the BL LE's Skin: Warm, dry, no rashes , lesions, or scars noted Neuro: Alert and oriented to person, place, month, year, and president, no focal defects, CN II-XII tested and intact, intact sensation in the BL LE's, 2+ patellar and achilles' reflexes BL, no tremors noted Psych: No acute distress, calm and cooperative during the exam Results & Data Results & Data Vital Signs (Past 12 Hours) Vital Signs Temp Pulse Pulse Resp BP BP Pulse Ox 09/17/22 14:00 74 18 143/74 H 94 09/17/22 13:39 73 09/17/22 12:20 36.7 C 76 18 161/69 H 94 09/17/22 12:08 36.5 C 77 18 161/69 H 95 O2 Del Method 09/17/22 14:00 Room Air 09/17/22 13:39 09/17/22 12:20 Room Air 09/17/22 12:08 Room Air Diagnostic Findings Lumbar Spine X-Ray 09/17/22 12:13 XR lumbar spine min 4V routine CLINICAL HISTORY: back and hip pain COMPARISON STUDY: Lumbar spine radiograph 03/31/2019. Abdomen and pelvis CT 11/22/2021. Pelvis CT 08/12/2022. FINDINGS: Mild levoscoliosis of the lumbar spine, unchanged. Moderate to severe compression deformity is at L3 and L4, unchanged. These are considered to be chronic. No acute fractures within the lumbar spine. The visualized sacrum is intact. Moderate facet degenerative changes again noted within the lumbar spine. There is moderate disc space narrowing at L3-L4 and L4-5. Mild disc space narrowing throughout the remaining lumbar spine. Vascular calcifications are noted. IMPRESSION: 1. No significant change in the old compression deformities at L3 and L4. 2. No acute fractures within the lumbar spine. 3. Degenerative changes as described above. ACT 112: Negative or not required by law. Electronically signed by: Mann Orourke M.D. 09/17/2022 1:32 PM Pelvis X-Ray 09/17/22 12:13 XR femur LT 2V routine, XR pelvis 1-2V routine CLINICAL HISTORY: fall TECHNIQUE: 2 radiographic views of the left femur and 2 views of the pelvis were obtained. Comparison: None available at the time of this dictation. FINDINGS: There are fractures of the left superior and inferior pubic rami. Degenerative changes are seen in the hip and knee joints. Vascular calcifications are noted. Calcified fibroids are incidentally noted. IMPRESSION: Left superior and inferior pubic rami fractures are seen. ACT 112: Negative or not required by law. Electronically signed by: Javon Casanova M.D. 09/17/2022 1:34 PM Femur X-Ray 09/17/22 12:55 XR femur LT 2V routine, XR pelvis 1-2V routine CLINICAL HISTORY: fall TECHNIQUE: 2 radiographic views of the left femur and 2 views of the pelvis were obtained. Comparison: None available at the time of this dictation. FINDINGS: There are fractures of the left superior and inferior pubic rami. Degenerative changes are seen in the hip and knee joints. Vascular calcifications are noted. Calcified fibroids are incidentally noted. IMPRESSION: Left superior and inferior pubic rami fractures are seen. ACT 112: Negative or not required by law. Electronically signed by: Javon Casanova M.D. 09/17/2022 1:[address] 09/17/22 13:[address] DOSE: 1172.45 mGy.cm HISTORY: fall L hip pain TECHNIQUE: Multiaxial CT images of the left hip were performed and reformatted in the sagittal and coronal plane without the use of contrast. A dose lowering technique was utilized adhering to the principles of ALARA. COMPARISON: Pelvis CT 08/12/2022. FINDINGS: There is an acute nondisplaced fracture within the left sacrum. There are healing left superior and inferior pubic rami fractures which are slightly displaced. These remain unchanged in alignment. No acute fracture or dislocation within the proximal left femur. No soft tissue hematoma identified within the left hip. Vascular calcifications are noted. A small fat-containing left ingui nal hernia. Partially visualized calcified uterine fibroids are noted. IMPRESSION: 1. Acute nondisplaced fracture within the left sacrum. 2. Healing left superior and inferior pubic rami fractures are again noted. These remain unchanged in alignment. 3. No fracture or dislocation within the proximal left femur. ACT 112: Negative or not required by law. Electronically signed by: Mann Orourke M.D. 09/17/2022 3:45 PM Femur X-Ray 09/17/22 13:55 XR femur RT 2V routine HISTORY: 87 years-old Female fall acute pain of the right hip status post fall COMPARISON: Pelvis radiographs of same day and also 08/12/2022 TECHNIQUE: 2 views of the right femur FINDINGS: Demineralized appearance of the bones. Mild to moderate osteoarthritis of the right hip. No acute fracture or dislocation identified. Right knee arthroplasty. Arterial calcifications. Partially imaged subacute left pelvic ring fractures. Small right knee joint effusion. IMPRESSION: 1. No acute fracture or dislocation identified. 2. Partially imaged subacute left pelvic ring fractures, similar in appearance to the study from 08/12/2022. ACT 112: Negative or not required by law. The above report was generated using voice recognition software. It may contain grammatical, syntax or spelling errors. Electronically signed by: Jeffery Mora M.D. 09/17/2022 3:[address] 09/17/22 14:19 CT head/brain wo con CLINICAL HISTORY: fall Technique: Contiguous axial CT images of the head were acquired from the base of the skull to the vertex without intravenous contrast administration. Images were viewed in brain, subdural and bone windows. Automated dose lowering techniques and/or adjustment according to patient size were utilized for this exam. Comparison: None available at the time of this dictation. Findings: Areas of decreased attenuation are present in the periventricular and subcortical white matter bilaterally consistent with small vessel ischemic disease. Generalized cerebral atrophy with commensurate enlargement of the ventricles, sulci, and cisterns is also present. There is no acute intracranial hemorrhage or evidence of acute territorial infarction. No shift of the midline structures, mass effect, or extra-axial abnormalities are shown. Atherosclerotic calcifications are present in the intracranial segments of the internal carotid arteries. Imaged portions of the paranasal sinuses and mastoid air cells are clear. The orbits appear normal. There are no acute fractures of the calvaria or scalp swelling. Impression: No acute intracranial hemorrhage, no evidence of acute territorial infarction or other acute intracranial disease process. ACT 112: Negative or not required by law. Electronically signed by: Javon Casanova M.D. 09/17/2022 3:48 PM Code Status & VTE Plan Code Status Full code VTE Prophylaxis Plan VTE Prophylaxis will be ordered: Yes Supervising Physician Co-Signing Physician Notes I personally saw and examined the patient. I verified all wilder points and agree with Bebeto Matute PA-C with the following exceptions and/or additions: 87 year old female presents to the ER with worsening left groin pain and back pain with ambulatory dysfunction following recent pelvic fracture. No further falls since ER visit in August. B/l ambulatory dysfunction which the patient and daughter feel is due to her pain. Significant improvement after tramadol given. Daughter reports patient cannot take NSAIDs. O/E HS RRR, no murmurs, Chest CTAB, Abdo SNT, pain on int/ext rotation of left leg, no central/paraspinal lumbar pain on palpation, No SI joint tenderness A/P New acute sacral fracture - suspect from just sitting down hard, vitamin D level with AM labs, consider DEXA scan as outpatient, pain control with Subacute pelvic fracture - Pelvic CT to assess right side although her main pain is likely the older PG Care Time/CCT Total # of Minutes Spent Total Time Spent with Patient: Total time spent is greater than 50% in coordination of care (as documented) at patient's floor/unit and/or counseling patient: Coding [place] [address] INT INP/OBS CARE 2/55MIN Patient Type Established Medical Decision Making Moderate Complexity Diagnoses Ambulatory dysfunction R26.2 Closed fracture of pubic ramus S32.592A Encounter type: initial encounter Laterality: left Closed sacral fracture S32.10XA Encounter type: initial encounter Zone of sacrum fracture: unspecified portion of sacrum HTN (hypertension) I10 (2) Closed fracture of pubic ramus Encounter type: initial encounter Laterality: left Qualified Code(s): S32.592A - Other specified fracture of left pubis, initial encounter for closed fracture (3) Closed sacral fracture Encounter type: initial encounter Zone of sacrum fracture: unspecified portion of sacrum Qualified Code(s): S32.10XA - Unspecified fracture of sacrum, initial encounter for closed fracture
[2022-09-17] MEDS ORDERED: traMADol HCL 50 MG TABLET ONE (17:55)
[2022-09-17] MEDS ORDERED: traMADol HCL 50 MG TABLET PO STA (17:57)
[2022-09-17] MEDS ORDERED: ACETAMINOPHEN 325 MG TAB PO STA (18:15)
[2022-09-17] MEDS ORDERED: LIDOCAINE 5% 1 PATCH TD STA (18:16)
[2022-09-17 18:29] LABS: Basophils # (auto) 0.03 K/uL (0-0.2); Basophils % (auto) 0.2 %; Eosinophils # (auto) 0.07 K/uL (0-0.50); Eosinophils % (auto) 0.4 %; Hematocrit (blood only) 36.7 % (37.0-47.0); Hemoglobin 12.8 g/dl (12.0-16.0); Immature Granulocytes # (auto) 0.16 K/uL (0.01-0.20); Lymphocytes # (auto) 1.37 K/uL (1.2-3.4); Lymphocytes % (auto) 8.3 %; Mean Corpuscular Hemoglobin 32.9 pg (25.0-34.0); Mean Corpuscular Hgb Conc 34.9 g/dL (32.0-36.0); Mean Corpuscular Volume 94.3 fL (80.0-100.0); Mean Platelet Volume 9.4 fL (9.4-12.4); Monocytes # (auto) 1.22 K/uL (0.11-0.59); Monocytes % (auto) 7.4 %; Neutrophils # (auto) 13.64 K/uL (1.40-6.50); Neutrophils % (auto) 82.7 %; Platelet Count 317 K/uL (130-400); RDW Coefficient of Variation 14.5 % (11.5-14.5); RDW Standard Deviation 49.5 fL (36.4-46.3); Red Blood Count 3.89 M/uL (4.20-5.40); White Blood Count 16.49 K/ul (4.8-10.8)
[2022-09-17 18:39] LABS: BUN Creatinine Ratio 31.7 (10-20); Creatinine Clr Calc Pharmacy 55.5 ml/min; Est GFR (African American) 92.2 ml/min; Est GFR (Non-African American) 79.5 ml/min
[2022-09-17] MEDS ORDERED: traMADol HCL 50 MG TABLET PO PRN (20:47)
[2022-09-17] MEDS: ACETAMINOPHEN 325 MG TAB PO SCH (21:17)
[2022-09-17] MEDS: amLODIPine BESYLATE 5 MG TAB PO SCH (21:17)
[2022-09-18] MEDS: ACETAMINOPHEN 325 MG TAB PO SCH ×3 (02:25→15:30)
--- NOTE | 2022-09-18 07:58 | Hospitalist Progress Note ---
Date of Service September 18, 2022 Assessment & Plan (1) Ambulatory dysfunction: Plan: Recent fall with known fractures of pubic rami, now with noted new fractures of sacrum without known fall since initial event. She was evaluated initially yesterday due to pain. Orthopedics curbsided, no surgical interventions indicated with addition of sacral fracture. PT and OT ordered; suspect need for inpatient physical rehab however patient is reticent about this. Patient's daug hter wants to trial dose of pain medication in the AM before a walking trial, and is willing to accept risk of return home rather than rehab if patient performs well from her perspective. Did discuss and daughter agrees that if she requires more than 1 person assist that it would be very difficult for her to return home. Did schedule Tylenol also, as daughter reports that patient won't ask for pain medication but it does not mean that she is not uncomfortable. Noted to be Vitamin D deficient with level of 20. Vitamin D supplement 1000IU daily started while admitted, to continue on discharge. Patient should have follow up regarding concern for osteoporotic fractures, for DEXA/bisphosphonates if indicated. (2) Closed fracture of pubic ramus: Plan: see above (3) Closed sacral fracture: Plan: see above (4) HTN (hypertension): Plan: Continue amlodipine and lisinopril. Admission and Anticipated Discharge Date Admission Date: September 17, 2022 Subjective No acute events overnight. Denies much pain when lying in bed, but does have pain with trying to stand/ambulate. Patient had bad experience at rehab recently and would rather return home if possible. Denies chest pain, SOB, nausea. Review of Systems Review of Systems: All systems reviewed & are unremarkable except as noted in Subjective Physical Exam Constitutional: WD/WN, vitals as above Respiratory: normal respiratory effort, lungs clear to auscultation Cardiovascular: RRR, no murmur, no edema Gastrointestinal (Abdomen): normal bowel sounds, soft, nontender, no hepatosplenomegaly Skin: no rashes, warm and dry Psychiatric: A+Ox3, euthymic affect Results & Data Results & Data Vital Signs (Past 12 Hours) Vital Signs Temp Pulse Pulse Resp BP BP Pulse Ox 09/18/22 07:28 36.7 C 67 17 148/69 H 93 09/17/22 20:30 36.8 C 72 14 93 09/17/22 20:05 72 09/17/22 20:01 72 16 143/74 H 96 O2 Del Method 09/18/22 07:28 Room Air 09/17/22 20:30 Room Air 09/17/22 20:05 09/17/22 20:01 Room Air PG Care Time/CCT Total # of Minutes Spent Total Time Spent with Patient: Total time spent is greater than 50% in coordination of care (as documented) at patient's floor/unit and/or counseling patient: Coding Level of Care Code 32739 SUB INP/OBS CARE 2/35MIN Diagnoses Ambulatory dysfunction R26.2 Closed fracture of pubic ramus S32.592A Encounter type: initial encounter Laterality: left Closed sacral fracture S32.10XA Encounter type: initial encounter Zone of sacrum fracture: unspecified portion of sacrum HTN (hypertension) I10 (2) Closed fracture of pubic ramus Encounter type: initial encounter Laterality: left Qualified Code(s): S32.592A - Other specified fracture of left pubis, initial encounter for closed fracture (3) Closed sacral fracture Encounter type: initial encounter Zone of sacrum fracture: unspecified portion of sacrum Qualified Code(s): S32.10XA - Unspecified fracture of sacrum, initial encounter for closed fracture
[2022-09-18 08:42] LABS: Hematocrit (blood only) 37.3 % (37.0-47.0); Hemoglobin 12.8 g/dl (12.0-16.0); Mean Corpuscular Hemoglobin 32.6 pg (25.0-34.0); Mean Corpuscular Hgb Conc 34.3 g/dL (32.0-36.0); Mean Corpuscular Volume 94.9 fL (80.0-100.0); Mean Platelet Volume 9.3 fL (9.4-12.4); Platelet Count 314 K/uL (130-400); RDW Coefficient of Variation 14.6 % (11.5-14.5); RDW Standard Deviation 50.4 fL (36.4-46.3); Red Blood Count 3.93 M/uL (4.20-5.40); White Blood Count 12.89 K/ul (4.8-10.8)
[2022-09-18] MEDS: lisinopril 20 MG TAB PO SCH (09:02)
[2022-09-18 09:07] LABS: BUN Creatinine Ratio 24.6 (10-20); Calcium 9.1 mg/dl (8.6-10.3); Creatinine Clr Calc Pharmacy 57.7 ml/min; Est GFR (African American) 93.2 ml/min; Est GFR (Non-African American) 80.4 ml/min; Potassium 3.9 mmol/L (3.5-5.1)
[2022-09-18] MEDS: CHOLECALCIFEROL 1,000 UNITS 25 MCG TAB PO SCH (09:28)
--- NOTE | 2022-09-18 11:02 | CT Scan Report ---
CT pelvis wo con HISTORY: 87 years-old Female Ortho requesting full imaging of pelvis acute nondisplaced left sacral fracture with healing subacute left superior and inferior pubic ramus fractures.. COMPARISON: 09/17/2022, 08/12/2022 TECHNIQUE: Multiple axial CT images of the bony pelvis were obtained without the use of IV contrast. A dose lowering technique was used consistent with the principals of ALARA. FINDINGS: Demineralized appearance of the bones. Acute bilateral sacral fractures with only minimal displacemen t on the right and no significant displacement on the left. Healing subacute left superior and inferi or pubic ramus fractures with unchanged alignment and healing bony callus formation. Moderate osteoar thritis of the hips. No additional acute fracture, subluxation or avascular necrosis. The imaged bila teral femora appear intact. Atherosclerosis of the aorta. Fibroid uterus. Colonic diverticulosis. Fat filled left inguinal hernia . Mild nonspecific stranding noted adjacent to the duodenum with associated wall thickening. IMPRESSION: 1. Acute bilateral sacral fractures without significant displacement. 2. Healing subacute left superior and inferior pubic ramus fractures with unchanged alignment. 3. The imaged proximal femora appear intact bilaterally. 4. Partially imaged duodenal wall thickening with trace adjacent inflammatory stranding. Correlate cl inically to exclude a nonspecific duodenitis. ACT 112: Negative or not required by law. The above report was generated using voice recognition software. It may contain grammatical, syntax o r spelling errors. Electronically signed by: Jeffery Mora M.D. 09/18/2022 11:00 AM
[2022-09-18] MEDS ORDERED: traMADol HCL 50 MG TABLET PO PRN (18:24)
[2022-09-18] MEDS: ACETAMINOPHEN 500 MG TAB PO SCH (18:38)
[2022-09-18] MEDS: amLODIPine BESYLATE 5 MG TAB PO SCH (20:12)
[2022-09-19] MEDS: ACETAMINOPHEN 500 MG TAB PO SCH ×3 (02:40→19:53)
[2022-09-19] MEDS: CHOLECALCIFEROL 1,000 UNITS 25 MCG TAB PO SCH (08:21)
[2022-09-19] MEDS: lisinopril 20 MG TAB PO SCH (08:21)
[2022-09-19] MEDS ORDERED: traMADol HCL 50 MG TABLET PO ONE (09:00)
--- NOTE | 2022-09-19 16:10 | Hospitalist Progress Note ---
Date of Service September 19, 2022 Assessment & Plan (1) Ambulatory dysfunction: Plan: Recent fall with known fractures of pubic rami, now with noted new fractures of sacrum without known fall since initial event. Orthopedics curbsided, no surgical interventions indicated with addition of sacral fracture. PT and OT ordered; suspect need for inpatient physical rehab however patient is reticent about this. Attempted walking trial today, patient unable even to walk, a lot of pain with sitting to standing, not holding walker properly. Discussed concerns for patient safety with patient/daughter who are in agreement about short course rehab. Do also recommend scheduled small dose tramadol for a few days to see if patient will do better with therapy with better pain control (doesn't ask for medication in bed when she is comfortable, but then performs poorly during the rapy/movement due to pain). Noted to be Vitamin D deficient with level of 20. Vitamin D supplement 1000IU daily started while admitted, to continue on discharge. Patient should have follow up regarding concern for osteoporotic fractures, for DEXA/bisphosphonates if indicated. (2) Closed fracture of pubic ramus: Plan: see above (3) Closed sacral fracture: Plan: see above (4) HTN (hypertension): Plan: Continue amlodipine and lisinopril. Admission and Anticipated Discharge Date Admission Date: September 17, 2022 Subjective Patient without any acute events overnight. Reports pain in buttocks with trying to stand up straight and trying to walk. Denies chest pain, shortness of breath, nausea, abdominal pain. Review of Systems Review of Systems: All systems reviewed & are unremarkable except as noted in Subjective Physical Exam Constitutional: WD/WN, vitals as above Respiratory: normal respiratory effort, lungs clear to auscultation Cardiovascular: RRR, no murmur, no edema Gastrointestinal (Abdomen): normal bowel sounds, soft, nontender, no hepatosplenomegaly Musculoskeletal: Watched patient attempt to get out of bed and walk today, able to go from lying to sitting with some difficulty, great difficulty with going from sitting to standing, does not hold walker properly, requires a lot of cueing Skin: no rashes, warm and dry Psychiatric: A+Ox3, euthymic affect Results & Data Results & Data Vital Signs (Past 12 Hours) Vital Signs Temp Pulse Resp BP Pulse Ox O2 Del Method 09/19/22 15:43 36.7 C 62 18 142/82 H 96 Room Air 07/15/23 07:48 37 C 64 18 143/76 H 93 Room Air PG Care Time/CCT Total # of Minutes Spent Total Time Spent with Patient: Total time spent is greater than 50% in coordination of care (as documented) at patient's floor/unit and/or counseling patient: Coding Level of Care Code 82156 SUB INP/OBS CARE 2/35MIN Diagnoses Ambulatory dysfunction R26.2 Closed fracture of pubic ramus S32.592A Encounter type: initial encounter Laterality: left Closed sacral fracture S32.10XA Encounter type: initial encounter Zone of sacrum fracture: unspecified portion of sacrum HTN (hypertension) I10 (2) Closed fracture of pubic ramus Encounter type: initial encounter Laterality: left Qualified Code(s): S32.592A - Other specified fracture of left pubis, initial encounter for closed fracture (3) Closed sacral fracture Encounter type: initial encounter Zone of sacrum fracture: unspecified portion of sacrum Qualified Code(s): S32.10XA - Unspecified fracture of sacrum, initial encounter for closed fracture
[2022-09-19] MEDS: amLODIPine BESYLATE 5 MG TAB PO SCH (20:46)
[2022-09-19] MEDS: traMADol HCL 50 MG TABLET PO SCH (20:47)
[2022-09-20] MEDS: ACETAMINOPHEN 500 MG TAB PO SCH ×3 (01:59→19:46)
--- NOTE | 2022-09-20 08:18 | Hospitalist Progress Note ---
Date of Service September 20, 2022 Assessment & Plan (1) Ambulatory dysfunction: Plan: Recent fall with known fractures of pubic rami, now with new fractures of sacrum without known fall since initial event. Orthopedics curbsided this admission, no surgical interventions indicated with addition of sacral fracture. PT and OT ordered; recommending inpatient physical rehab. Attempted walking trial 09/19, patient unable even to walk, a lot of pain with sitting to standing, not holding walker properly despite cueing. Discussed concerns for patient safety with patient/daughter who are in agreement about short course rehab. Continue scheduled small dose tramadol for a few days to see if patient will do better with therapy with better pain control (doesn't ask for medication in bed when she is comfortable, but then performs poorly during therapy/movement due to pain). Noted to be Vitamin D deficient with level of 20. Vitamin D supplement 1000IU daily started while admitted, to continue on discharge. Patient should have follow up regarding concern for osteoporotic fractures, for DEXA/bisphosphonates if indicated. (2) Closed fracture of pubic ramus: Plan: see above (3) Closed sacral fracture: Plan: see above (4) HTN (hypertension): Plan: Continue amlodipine and lisinopril. Plan Case Management assisting with placement for rehab for the patient Admission and Anticipated Discharge Date Admission Date: September 17, 2022 Subjective No overnight events. Feels "bored" today, has buttock pain with moving but fine with sitting and lying in bed. Denies chest pain, SOB, abdominal pain. Review of Systems Review of Systems: All systems reviewed & are unremarkable except as noted in Subjective Physical Exam Constitutional: WD/WN, vitals as above Skin: no rashes, warm and dry Psychiatric: A+Ox3, euthymic affect Results & Data Results & Data Vital Signs (Past 12 Hours) Vital Signs Temp Pulse Resp BP Pulse Ox O2 Del Method 09/20/22 07:58 36.6 C 67 18 145/73 H 94 Room Air 09/19/22 21:05 36.8 C 66 16 137/65 94 Room Air PG Care Time/CCT Total # of Minutes Spent Total Time Spent with Patient: Total time spent is greater than 50% in coordination of care (as documented) at patient's floor/unit and/or counseling patient: Coding Level of Care Code 61785 SUB INP/OBS CARE 1/25MIN Diagnoses Ambulatory dysfunction R26.2 Closed fracture of pubic ramus S32.592A Encounter type: initial encounter Laterality: left Closed sacral fracture S32.10XA Encounter type: initial encounter Zone of sacrum fracture: unspecified portion of sacrum HTN (hypertension) I10 (2) Closed fracture of pubic ramus Encounter type: initial encounter Laterality: left Qualified Code(s): S32.592A - Other specified fracture of left pubis, initial encounter for closed fracture (3) Closed sacral fracture Encounter type: initial encounter Zone of sacrum fracture: unspecified portion of sacrum Qualified Code(s): S32.10XA - Unspecified fracture of sacrum, initial encounter for closed fracture
[2022-09-20] MEDS: lisinopril 20 MG TAB PO SCH (08:54)
[2022-09-20] MEDS: traMADol HCL 50 MG TABLET PO SCH ×2 (08:54→21:04)
[2022-09-20] MEDS: CHOLECALCIFEROL 1,000 UNITS 25 MCG TAB PO SCH (08:54)
[2022-09-20] MEDS ORDERED: traMADol HCL 50 MG TABLET PO PRN (13:27)
[2022-09-20] MEDS: amLODIPine BESYLATE 5 MG TAB PO SCH (19:47)
--- NOTE | 2022-09-21 08:47 | Hospitalist Progress Note ---
Date of Service September 21, 2022 Assessment & Plan (1) Ambulatory dysfunction: Plan: Recent fall with known fractures of pubic rami, now with new fractures of sacrum without known fall since initial event. Orthopedics curbsided this admission, no surgical interventions indicated with addition of sacral fracture. PT and OT ordered; recommending inpatient physical rehab. Attempted walking trial 09/19, patient unable even to walk, a lot of pain with sitting to standing, not holding walker properly despite cueing. Discussed concerns for patient safety with patient/daughter who are in agreement about short course rehab. Continue scheduled small dose tramadol for a few days to see if patient will do better with therapy with better pain control (doesn't ask for medication in bed when she is comfortable, but then performs poorly during therapy/movement due to pain). Noted to be Vitamin D deficient with level of 20. Vitamin D supplement 1000IU daily started while admitted, to continue on discharge. Patient should have follow up regarding concern for osteoporotic fractures, for DEXA/bisphosphonates if indicated. (2) Closed fracture of pubic ramus: Plan: see above (3) Closed sacral fracture: Plan: see above (4) HTN (hypertension): Plan: Continue amlodipine and lisinopril. Plan Case Management assisting with placement for rehab for the patient Admission and Anticipated Discharge Date Admission Date: September 17, 2022 Results & Data Results & Data Vital Signs (Past 12 Hours) Vital Signs Temp Pulse Resp BP Pulse Ox O2 Del Method 09/21/22 07:34 36.4 C L 68 16 154/78 H 95 Room Air PG Care Time/CCT Total # of Minutes Spent Total Time Spent with Patient: Total time spent is greater than 50% in coordination of care (as documented) at patient's floor/unit and/or counseling patient: Coding Diagnoses Ambulatory dysfunction R26.2 Closed fracture of pubic ramus S32.592A Encounter type: initial encounter Laterality: left Closed sacral fracture S32.10XA Encounter type: initial encounter Zone of sacrum fracture: unspecified portion of sacrum HTN (hypertension) I10 (2) Closed fracture of pubic ramus Encounter type: initial encounter Laterality: left Qualified Code(s): S32.592A - Other specified fracture of left pubis, initial encounter for closed fracture (3) Closed sacral fracture Encounter type: initial encounter Zone of sacrum fracture: unspecified portion of sacrum Qualified Code(s): S32.10XA - Unspecified fracture of sacrum, initial encounter for closed fracture
[2022-09-21] MEDS: traMADol HCL 50 MG TABLET PO SCH (08:58)
[2022-09-21] MEDS: ACETAMINOPHEN 500 MG TAB PO SCH ×2 (08:58→14:02)
[2022-09-21] MEDS: CHOLECALCIFEROL 1,000 UNITS 25 MCG TAB PO SCH (08:59)
[2022-09-21] MEDS: lisinopril 20 MG TAB PO SCH (08:59)
--- NOTE | 2022-09-21 14:53 | Discharge Summary ---
Discharge Summary Date of Service September 21, 2022 Admission HPI Per Admitting Provider Gracy is an 87 year old female with a PMH significant for HTN, mild persistent asthma, chronic SI joint pain, right knee replacement, and recent fall resulting in a non-displaced superior/inferior pelvic rami fractures on 08/10/22 who presented to the [facility] ED on 09/17 with her daughter for right buttocks/hip pain and ambulatory dysfunction. In the ED vitals were stable stable, labs are in process at the time of admission. Initially the patient was having difficulty moving her left lower extremity compared to baseline. CT of the head was read as "No acute intracranial hemorrhage, no evidence of acute territorial infarction or other acute intracranial disease process.". Lumbar spine xray was read as "1. No significant change in the old compression deformities at L3 and L4. 2. No acute fractures within the lumbar spine. 3. Degenerative changes as described above.". Xray of the pelvis was read as "Left superior and inferior pubic rami fractures are seen.". ADDENDUM Left superior and inferior pubic rami fractures are subacute and are unchanged from prior exam, comparison was made to CT pelvis. Xray of the right femur was read as "1. No acute fracture or dislocation identified. 2. Partially imaged subacute left pelvic ring fractures, similar in appearance to the study from 08/12/2022.". And CT of the left hip was read as "1. Acute nondisplaced fracture within the left sacrum. 2. Healing left superior and inferior pubic rami fractures are again noted. These remain unchanged in alignment. 3. No fracture or dislocation within the proximal left femur. We were asked to admit the patient for further evaluation, pain management, and possible rehab placement. At time of the exam the patient was sitting in bed in no acute distress with her daughter sitting bedside. Her daughter states that the patient initially went to [facility] rehab after her fall and pelvic rami fractures in August. The patient and her family were frustrated with [facility] as the patient was only given tylenol for pain, so they brought her back home. The patient lives at home alone, but her daughter lives next door, is a nurse, and checks on her frequently. They states that this am the patient has increased right buttocks/SI join pain, pain in the LLE, and decreased ROM and ambulatory disfunction due to the pain. They deny any other falls/trauma since being discharged from [facility]. The patient recently had Right mid-superior gluteal trigger point injections with [facility] on 09/09, she does not believe that they improved her right SI joint pain. The patient denies recent fever, chills, paresthesias, loss of bowel or bladder function, chest pain, SOB, abd pain, nausea, vomiting, diarrhea,dysuria, hematuria, melena, LE swelling. The patient states that she will consider DC to inpatient rehab if it is determined that it will be needed. The patient wishes to be a full code and for her Daughter to make medical decisions for her if she cannot make them herself. Please refer to Dr. Odom's attestation for ras changes to the treatment plan Admission Exam Per Admitting Provider General:In no acute distress, stated age, well-nourished, good hygiene HEENT:Normocephalic, atraumatic, no scleral icterus, pupils around round, symmetrical, and reactive to light, moist mucus membranes, trachea midline, no thyromegaly Chest/Pulm:No respiratory distress, symmetrical chest expansion, clear breath sounds throughout Cardiac:RRR, no murmurs noted Abdomen:Negative for ascites and bruising, normoactive bowel sounds, soft, non-tender to palpation throughout Musculoskeletal:No acute trauma noted on evaluation of the head, neck, cervical spine, thoracic, spine, and lumbar spine, symmetrical and full ROM of the BL upper extremities, patient with pain to palpation over the right buttocks/SI region, no tenderness to palpation over the BL pelvis/hips, decreased ROM of the BL hips due to pain, symmetrical Strength of the BL hips, knees, and ankles Extremities:Radial, dorsalis pedis, and posterior tibial pulses are intact and symmetrical, no edema noted in the BL LE's Skin:Warm, dry, no rashes , lesions, or scars noted Neuro:Alert and oriented to person, place, month, year, and president, no focal defects, CN II-XII tested and intact, intact sensation in the BL LE's, 2+ patellar and achilles' reflexes BL, no tremors noted Psych:No acute distress, calm and cooperative during the exam Principal Dx & Hospital Course #1 = Principal Diagnosis (1) Ambulatory dysfunction: Recent fall with known fractures of pubic rami, now with new fractures of sacrum without known fall since initial event. Orthopedics curbsided this admission, no surgical interventions indicated with addition of sacral fracture. PT and OT ordered; recommending inpatient physical rehab. Attempted walking trial 09/19, patient unable even to walk, a lot of pain with sitting to standing, not holding walker properly despite cueing. Discussed concerns for patient safety with patient/daughter who are in agreement about short course rehab. Continue scheduled small dose tramadol 25mg TID for a few days to see if patient will do better with therapy with better pain control (doesn't ask for medication in bed when she is comfortable, but then performs poorly during therapy/movement due to pain). Noted to be Vitamin D deficient with level of 20. Vitamin D supplement 1000IU daily started while admitted, to continue on discharge. Patient should have follow up regarding concern for osteoporotic fractures, for DEXA/bisphosphonates if indicated. (2) Closed fracture of pubic ramus: see above (3) Closed sacral fracture: see above (4) HTN (hypertension): Continue amlodipine and lisinopril, allow for mild HTN to minimize fall risk, BP 150s systolic Discharge Exam Constitutional WD/WN, vitals as above Psychiatric alert, oriented to self and situation, euthymic affect Updated Medication List Medication Instructions Recorded Confirmed Type amlodipine 5 mg tablet 5 mg PO HS #90 tabs 08/27/22 09/17/22 Rx lisinopril 20 mg tablet 20 mg PO DAILY #90 tabs 08/27/22 09/17/22 Rx acetaminophen 500 mg tablet 500 mg PO Q6H PRN Pain 09/17/22 09/17/22 History cholecalciferol (vitamin D3) 25 1,000 unit PO QAM #30 caps 09/19/22 Rx mcg (1,000 unit) capsule tramadol 50 mg tablet 25 mg PO TID 5 days #8 tabs 09/21/22 Rx Hospital Stay Data Diagnostic Imagining Performed 09/17/22 13:43 CT hip LT wo con Stat 09/17/22 14:19 CT head/brain wo con Stat 09/18/22 10:00 CT pelvis wo con Urgent Pending Results Patient Have Any Pending Studies at Discharge: No Discharge Instructions Given to Patient (Per Discharging Provider) Ambulatory dysfunction: Recent fall with known fractures of pubic rami about 6 weeks ago, now with new fractures of sacrum without known fall since initial event. Orthopedics curbsided this admission, no surgical interventions indicated with addition of sacral fracture. PT and OT ordered; recommending inpatient physical rehab. Attempted walking trial 09/19, patient unable even to walk, a lot of pain with sitting to standing, not holding walker properly despite cueing. Discussed concerns for patient safety with patient/daughter who are in agreement about short course rehab. Continue scheduled small dose tramadol 25mg TID to see if patient will do better with therapy with better pain control (doesn't ask for medication in bed when she is comfortable, but then performs poorly during therapy/movement due to pain). Noted to be Vitamin D deficient with level of 20. Vitamin D supplement 1000IU daily started while admitted, to continue on discharge. Patient should have follow up regarding concern for osteoporotic fractures, for DEXA/bisphosphonates if indicated. Closed fracture of pubic ramus: see above Closed sacral fracture: see above HTN (hypertension): Continue amlodipine and lisinopril, BP 150s systolic, tolerate mild HTN to minimize falls. Total Time Total Time Spent Total Time Spent (In Minutes): 35 min Coding Level of Care Code 39336 INP/OBS DISCH >30 MIN Diagnoses Ambulatory dysfunction R26.2 Closed fracture of pubic ramus S32.592A Encounter type: initial encounter Laterality: left Closed sacral fracture S32.10XA Encounter type: initial encounter Zone of sacrum fracture: unspecified portion of sacrum HTN (hypertension) I10
== END 2022-09-21 19:58 | DRG 552 ==
LOC: ED 12:03 → SUATTDRO 17:56 → 3N 17:56